=== PATIENT | female | born 1990 | race Caucasian/White ===

== ENCOUNTER 2017-02-16 10:47 | Outpatient (CLI) | payer MEDICAID | END 2017-02-16 10:48 | disposition home or self-care (01) | DX: R53.83 Other fatigue (principal) ==

== ENCOUNTER 2019-04-01 12:03 | Outpatient (CLI) | payer BC ==
--- NOTE | 2019-04-01 14:51 | Ultrasound Report ---
Reason: LUMP OR MASS IN BREAST Procedure Date: 04/01/2019 Accession Number: [id number] / [id number] Procedure: US - Breast Unilateral Limited CPT Code: FULL RESULT: EXAM: Breast Unilateral Limited DATE: 04/01/2019 12:52 PM CLINICAL HISTORY: LUMP OR MASS IN BREAST COMPARISON: None. TECHNIQUE: Targeted ultrasound was performed of the left breast in the area of clinical concern at 6-7 o'clock and 2 distance from the nipple. Color Doppler was employed as appropriate. FINDINGS: Normal breast tissue is identified. There is no abnormal collection or mass by ultrasound. IMPRESSION: Negative examination RECOMMENDATION: Correlation to clinical examination. Breast screening mammography starting at the age of 40. BIRADS CATEGORY 1: Negative RADIA
== END 2019-04-01 12:04 | disposition home or self-care (01) ==
LOC: DI 12:03
PROVIDERS: ATTEND Nurse Practitioner
DX: N63.24 Unspecified lump in the left breast, lower inner quadrant (principal)
CPT/HCPCS: 76642

== ENCOUNTER 2020-09-14 20:00 | Outpatient (CLI) | payer BC ==
--- NOTE | 2020-09-15 09:08 | Ultrasound Report ---
PROCEDURE: Pelvic Complete INDICATIONS: AMENORRHEA, PELVIC PAIN LEFT. TECHNIQUE: Real-time transabdominal scanning was performed of the pelvic organs, with image documentation. COMPARISON: None. FINDINGS: Uterus: Uterus measures 10.1 x 3.7 x 5.5 cm. Endometrium measures 4 mm in combined thickness. Uteri ne echotexture is within normal limits. Ovaries: Right ovary measures 9.5 x 5.7 x 6.2 cm. Right ovarian volume measures 176.8 mL. Large simp le right ovarian cyst is noted measuring 6.8 x 8.1 x 5.0 cm. Left ovary measures 2.8 x 1.9 x 2.5 cm. Left ovarian volume measures 6.9 mm. No suspicious ovarian or adnexal mass lesions. Other: No free pelvic fluid. Limited scanning through the kidneys shows no hydronephrosis. IMPRESSION: 1. No acute sonographic abnormalities identified in the pelvis. 2. 6.8 cm simple right ovarian cyst. Recommend follow-up pelvic ultrasound in one year. Reviewed by: Ricardo Villareal MD on 09/15/2020 9:06 AM PDT Approved by: Ricardo Villareal MD on 09/15/2020 9:06 AM PDT Station ID: [id number]
== END 2020-09-14 20:01 | disposition home or self-care (01) ==
LOC: DI 20:00
PROVIDERS: ATTEND Obstetrics & Gynecology
DX: N91.2 Amenorrhea, unspecified (principal); R10.2 Pelvic and perineal pain; N83.291 Other ovarian cyst, right side
CPT/HCPCS: 76856

== ENCOUNTER 2020-10-15 09:22 | Outpatient (CLI) | payer BC ==
[2020-10-16 13:36] LABS: HIV AG/AB 4TH GEN NON-REACTIVE (NON-REACTIVE)
== END 2020-10-15 09:23 | disposition home or self-care (01) ==
LOC: LAB.S 09:22
PROVIDERS: ATTEND Obstetrics & Gynecology
DX: Z11.3 Encounter for screening for infections with a predominantly sexual mode of transmission (principal)
CPT/HCPCS: 36415; 81599; 86592; 87350; 87389

== ENCOUNTER 2022-06-14 05:45 | Emergency (ER) | payer BC, MEDICAID, OTHER ==
--- NOTE | 2022-06-14 06:05 | ED Physician Documentation ---
History of Present Illness - Stated complaint Stated Complaint: FEMALE /BLEEDING - Chief complaint Chief Complaint: General - History obtained from History obtained from: Patient - Additonal information Additional information: Patient is a who estimates she is approximately 5 weeks presenting for evaluation of vaginal bleeding that started this morning. Her last menstrual cycle was May 06. She has had 2 positive home tests. When she woke up and went to urinate this morning, she noticed blood on the toilet paper when she wiped. It was mucousy bloody discharge. There were no clots. She denies abdominal cramping. She denies fever, chest pain, trouble breathing, abdominal pain, vomiting or diarrhea. She does report recently having sciatica pain on the right.She is taking a . She has not yet established OB care for this .Her prior 2 pregnancies were uncomplicated. Review of Systems Constitutional: denies: Fever Nose: denies: Congestion Cardiac: denies: Chest pain / pressure Respiratory: denies: Dyspnea GI: denies: Abdominal Pain : reports: Vaginal bleeding Musculoskeletal: denies: Back pain Neurologic: denies: Headache PD PAST MEDICAL HISTORY - Past Medical History Past Medical History: Yes GI: None, Other Psych: Depression - Past Surgical History Past Surgical History: No - Present Medications Home Medications: Ambulatory Orders Medication Instructions Recorded Confirmed Sertraline HCl 100 mg PO DAILY 03/20/16 03/20/16 Diphenoxylate/Atropine [Lomotil] 1 each PO QID PRN #15 tablet 03/21/16 ondansetron HCL [Zofran] 4 mg PO Q6H PRN #10 tablet 03/21/16 - Allergies Allergies/Adverse Reactions: Allergies Allergy/AdvReac Type Severity Reaction Status Date / Time No Known Drug Allergies Allergy Verified 06/14/22 05:53 - Social History Does the pt smoke?: No Smoking Status: Never smoker Does the pt drink ETOH?: No Does the pt have substance abuse?: No - Immunizations Immunizations are current?: Yes PD ED PE NORMAL - General General: Alert and oriented X 3, No acute distress, Well developed/nourished - HEENT HEENT: Atraumatic, Moist mucous membranes - Neck Neck: Supple, no meningeal sign - Cardiac Cardiac: RRR, No murmur, Strong equal pulses - Respiratory Respiratory: No respiratory distress, Clear bilaterally - Abdomen Abdomen: Normal bowel sounds, Soft, Non tender, Non distended - Female Female : 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 (varun Covarrubias), Other (normal external exam; cervical os is closed, small amount of blood; no CMT or adnexal tenderness) - Back Back: No CVA TTP - Derm Derm: Warm and dry - Extremities Extremities: No edema, No calf tenderness / cord - Neuro Neuro: Normal speech - Psych Psych: Normal mood Results - Vitals Vitals: Vital Signs - 24 hr 06/14/22 05:53 Temperature 36.6 C Heart Rate 89 Respiratory 15 Rate Blood Pressure 135/89 H O2 Saturation 100 Oxygen O2 Source Room air - Labs Labs: Laboratory Tests 06/14/22 06/14/22 06/14/22 05:57 06:12 06:12 WBC 6.8 RBC 4.68 Hgb 13.3 Hct 40.0 MCV 85.5 MCH 28.4 MCHC 33.3 RDW 12.9 Plt Count 324 MPV 9.4 Neut # (Auto) 4.7 Lymph # (Auto) 1.6 [place] # (Auto) 0.4 Eos # (Auto) 0.1 Baso # (Auto) 0.0 Absolute Nucleated RBC 0.00 Nucleated RBC % 0.0 Sodium Potassium Chloride Carbon Dioxide Anion Gap BUN Creatinine Estimated GFR (MDRD) Glucose Calcium Total Bilirubin AST ALT Alkaline Phosphatase Total Protein Albumin Globulin Albumin/Globulin Ratio Lipase Urine Color YELLOW Urine Clarity CLEAR Urine pH 6.0 Ur Specific Bent 1.020 Urine Protein NEGATIVE Urine Glucose (UA) NEGATIVE Urine Ketones NEGATIVE Urine Occult Blood LARGE H Urine Nitrite NEGATIVE Urine Bilirubin NEGATIVE Urine Urobilinogen 0.2 (NORMAL) Ur Leukocyte Esterase SMALL H Urine RBC 6-10 H Urine WBC 0-3 Ur Squamous Epith Cells MOD Squamous H Urine Bacteria Few Ur Microscopic Review INDICATED Urine Culture Comments NOT INDICATED Urine HCG, Qual POSITIVE Blood Type O POSITIVE 06/14/22 06:12 WBC RBC Hgb Hct MCV MCH MCHC RDW Plt Count MPV Neut # (Auto) Lymph # (Auto) [place] # (Auto) Eos # (Auto) Baso # (Auto) Absolute Nucleated RBC Nucleated RBC % Sodium 134 L Potassium 3.6 Chloride 102 Carbon Dioxide 25 Anion Gap 7.0 BUN 13 Creatinine 0.5 Estimated GFR (MDRD) 143 Glucose 106 H Calcium 9.0 Total Bilirubin 0.6 AST 20 ALT 30 Alkaline Phosphatase 50 Total Protein 7.9 Albumin 4.2 Globulin 3.7 Albumin/Globulin Ratio 1.1 Lipase 36 Urine Color Urine Clarity Urine pH Ur Specific Bent Urine Protein Urine Glucose (UA) Urine Ketones Urine Occult Blood Urine Nitrite Urine Bilirubin Urine Urobilinogen Ur Leukocyte Esterase Urine RBC Urine WBC Ur Squamous Epith Cells Urine Bacteria Ur Microscopic Review Urine Culture Comments Urine HCG, Qual Blood Type PD MEDICAL DECISION MAKING - ED course ED course: Patient is a 32-year-old G3, P2 who is approximately 5 weeks presenting for evaluation of vaginal bleeding starting this morning. Her vital signs are stable and abdominal exam is benign. Labs reviewed. Ultrasound is pending at time of shift change. Will sign out to Dr. Cordova to follow-up on results of ultrasound.
[2022-06-14 06:10] LABS: BILIRUBIN,URINE NEGATIVE (NEGATIVE); GLUCOSE, URINE (UA) NEGATIVE (NEGATIVE); KETONES,URINE (UA) NEGATIVE (NEGATIVE); LEUKOCYTE ESTERASE, URINE SMALL (NEGATIVE); NITRITE,URINE NEGATIVE (NEGATIVE); OCCULT BLOOD,URINE LARGE (NEGATIVE); PROTEIN,URINE NEGATIVE (NEGATIVE); UROBILINOGEN,URINE 0.2 (NORMAL) E.U./dL (NORMAL)
[2022-06-14 06:11] LABS: CLARITY,URINE CLEAR (CLEAR)
[2022-06-14 06:13] LABS: HCG UR QUAL POSITIVE
[2022-06-14 06:19] LABS: BACTERIA,URINE Few /HPF (None Seen); SQUAMOUS EPITHELIAL CELL,UR MOD Squamous (<= Few); WBC,URINE 0-3 /HPF (0-5)
[2022-06-14 06:19] LABS: BASOPHILS % (AUTO) 0.4 %; EOSINOPHILS # (AUTO) 0.1 10^3/uL (0.0-0.7); EOSINOPHILS % (AUTO) 1.9 %; HGB - HEMOGLOBIN 13.3 g/dL (12.0-16.0); LYMPHOCYTES # (AUTO) 1.6 10^3/uL (1.5-3.5); LYMPHOCYTES % (AUTO) 22.8 %; MEAN CORPUSCULAR HEMOGLOBIN 28.4 pg (27.0-31.0); MEAN CORPUSCULAR HGB CONC 33.3 g/dL (32.0-36.0); MEAN CORPUSCULAR VOLUME 85.5 fL (81.0-99.0); MEAN PLATELET VOLUME 9.4 fL (7.9-10.8); MONOCYTES # (AUTO) 0.4 10^3/uL (0.0-1.0); NEUTROPHILS # (AUTO) 4.7 10^3/uL (1.5-6.6); NEUTROPHILS % (AUTO) 68.6 %; PLT - PLATELET COUNT 324 10^3/uL (130-450); RED BLOOD COUNT 4.68 10^6/uL (4.20-5.40); RED CELL DISTRIBUTION WIDTH 12.9 % (12.0-15.0); WHITE BLOOD COUNT 6.8 x10^3/uL (4.8-10.8)
[2022-06-14 06:32] LABS: ALBUMIN 4.2 g/dL (3.2-5.5); ALBUMIN/GLOBULIN RATIO 1.1 (1.0-2.2); BILIRUBIN,TOTAL 0.6 mg/dL (0.2-1.0); CREATININE 0.5 mg/dL (0.4-1.0); POTASSIUM 3.6 mmol/L (3.5-5.0); TOTAL PROTEIN 7.9 g/dL (6.7-8.2)
--- NOTE | 2022-06-14 09:16 | Ultrasound Report ---
PROCEDURE: OB First Trimester w/TV INDICATIONS: 5wks , VAG BLEED OUTSIDE/PRIOR DATING DATA: Last menstrual period (LMP): 05/06/2022. LMP-based estimated date of delivery (MAGDALENO): 02/10/2023. First dating scan: 06/14/2022 TECHNIQUE: Real-time scanning was performed of the fetus and maternal pelvic organs, with image documentation. Endovaginal scanning was also performed to better visualize the fetus and maternal ovaries. COMPARISON: None. FINDINGS: Fluid in the fundal portion of the uterine cavity is consistent with a possible gestational sac measu ring 1 cm. No yolk sac or pole identified within this presumed gestational sac. Uterus otherwis e normal. Right ovarian cyst measuring 10.7 x 7.3 x 7.8 cm with some traversing septations but no obvious solid or nodular component. Presumed corpus luteum cyst in the left ovary measuring 2.2 cm. IMPRESSION: Small fluid collection in the fundal uterus is consistent with a possible gestational sac and based o n the size of this presumed gestational sac the gestational age is five weeks six days. No yolk sac o r pole identified. Findings are consistent with early early intrauterine . Continued f ollow-up including serial hCG measurement and possible repeat ultrasound recommended to document norm al intrauterine . Reviewed by: Renato Oreilly MD on 06/14/2022 9:15 AM PDT Approved by: Renato Oreilly MD on 06/14/2022 9:15 AM PDT Station ID: [id number]
--- NOTE | 2022-06-14 09:24 | ED Physician Documentation ---
Departure - Departure Disposition: 01 Home, Self Care Clinical Impression: Vaginal bleeding affecting early , Type O blood, Rh positive, Ovarian cyst Condition: Good Instructions: ED Miscarriage Poss, Cyst Ovarian About Comments: Findings on your ultrasound are consistent with early intrauterine , however we recommend that you follow-up within the week either in the emergency department or at your [facility] to ensure that your is progressing appropriately. Today there was a large ovarian cyst found on your ultrasound. You are not experiencing any symptoms at this time, however it is very important that you follow-up with your [facility] as soon as possible concerning the cyst as it can lead to increased risk of a condition called "torsion", which can lead to loss of your ovary. Return to the emergency department immediately if you experience right-sided pain.
--- NOTE | 2022-06-14 09:31 | ED Physician Documentation ---
ED Addendum - Addendum Addendum: 06/14/22 09:29 Ultrasound is significant for large right-sided ovarian cyst. Patient states that she has been told in the past that she has a cyst on that side, she has never had any intervention for it by SURGERY NURSE. At this time the patient denies having pain in her right lower quadrant. She states that she had pain 2 years ago, but none since. Patient was counseled on the importance of close SURGERY NURSE follow-up for the cyst as it could lead to increased risk of torsion. Patient states that she has an SURGERY NURSE clinic that she can follow-up with locally. Patient counseled to return immediately to the emergency department if she experiences pain on her right side. Early IUP seen, she was counseled to follow-up within the week for repeat ultrasound imaging to ensure progression of early intrauterine . Pelvic rest counseled until seen and cleared by SURGERY NURSE.
[2022-06-14 09:41] VITALS: BP 125/82
== END 2022-06-14 09:41 | disposition home or self-care (01) ==
LOC: ED 05:45
DX: O20.9 Hemorrhage in early pregnancy, unspecified (principal); O34.81 Maternal care for other abnormalities of pelvic organs, first trimester; N83.201 Unspecified ovarian cyst, right side; Z3A.01 Less than 8 weeks gestation of pregnancy
CPT/HCPCS: 36415; 80053; 81001; 81003; 81025; 83690; 84702; 85025; 86900; 86901; 87086; 99283; 99284

== ENCOUNTER 2022-08-01 15:36 | Outpatient (CLI) | payer MEDICAID ==
[2022-08-01 15:57] LABS: BASOPHILS % (AUTO) 0.4 %; EOSINOPHILS # (AUTO) 0.1 10^3/uL (0.0-0.7); EOSINOPHILS % (AUTO) 1.7 %; HCT - HEMATOCRIT 38.4 % (37.0-47.0); HGB - HEMOGLOBIN 12.6 g/dL (12.0-16.0); LYMPHOCYTES # (AUTO) 1.8 10^3/uL (1.5-3.5); LYMPHOCYTES % (AUTO) 21.8 %; MEAN CORPUSCULAR HEMOGLOBIN 28.1 pg (27.0-31.0); MEAN CORPUSCULAR HGB CONC 32.8 g/dL (32.0-36.0); MEAN CORPUSCULAR VOLUME 85.7 fL (81.0-99.0); MONOCYTES # (AUTO) 0.5 10^3/uL (0.0-1.0); MONOCYTES % (AUTO) 5.5 %; NEUTROPHILS # (AUTO) 5.8 10^3/uL (1.5-6.6); NEUTROPHILS % (AUTO) 70.4 %; PLT - PLATELET COUNT 324 10^3/uL (130-450); RED BLOOD COUNT 4.48 10^6/uL (4.20-5.40); RED CELL DISTRIBUTION WIDTH 12.9 % (12.0-15.0); WHITE BLOOD COUNT 8.2 x10^3/uL (4.8-10.8)
[2022-08-01 16:09] LABS: BILIRUBIN,URINE NEGATIVE (NEGATIVE); GLUCOSE, URINE (UA) NEGATIVE (NEGATIVE); KETONES,URINE (UA) NEGATIVE (NEGATIVE); LEUKOCYTE ESTERASE, URINE TRACE (NEGATIVE); NITRITE,URINE NEGATIVE (NEGATIVE); OCCULT BLOOD,URINE NEGATIVE (NEGATIVE); PROTEIN,URINE NEGATIVE (NEGATIVE); UROBILINOGEN,URINE 0.2 (NORMAL) E.U./dL (NORMAL)
[2022-08-01 17:26] LABS: BACTERIA,URINE Few /HPF (None Seen); CLARITY,URINE CLEAR (CLEAR); MUCUS,URINE Moderate Strands; RBC,URINE None Seen /HPF (0-5); SQUAMOUS EPITHELIAL CELL,UR MOD Squamous (<= Few)
[2022-08-02 06:07] LABS: HBsAG SCREEN Negative (Negative); HCV AB <0.1 s/co ratio (0.0-0.9)
[2022-08-02 07:08] LABS: HIV SCREEN 4TH GENERATION Non Reactive (Non Reactive)
[2022-08-03 04:08] LABS: RPR Non Reactive (Non Reactive)
[2022-08-03 08:10] LABS: VARICELLA-ZOSTER AB IGG <135 index (Immune >165)
== END 2022-08-01 15:37 | disposition home or self-care (01) ==
LOC: LAB 15:36
PROVIDERS: ATTEND Obstetrics & Gynecology
DX: Z36.89 Encounter for other specified antenatal screening (principal); Z32.01 Encounter for pregnancy test, result positive
CPT/HCPCS: 36415; 81001; 85025; 86592; 86762; 86787; 86803; 86850; 86900; 86901; 87086; 87340; 87389

== ENCOUNTER 2022-08-04 15:58 | Outpatient (CLI) | payer MEDICAID ==
[2022-08-04 16:19] LABS: BILIRUBIN,URINE NEGATIVE (NEGATIVE); GLUCOSE, URINE (UA) NEGATIVE (NEGATIVE); KETONES,URINE (UA) TRACE mg/dL (NEGATIVE); LEUKOCYTE ESTERASE, URINE NEGATIVE (NEGATIVE); NITRITE,URINE NEGATIVE (NEGATIVE); OCCULT BLOOD,URINE NEGATIVE (NEGATIVE); PROTEIN,URINE NEGATIVE (NEGATIVE); UROBILINOGEN,URINE 0.2 (NORMAL) E.U./dL (NORMAL)
[2022-08-04 16:30] LABS: CLARITY,URINE CLOUDY (CLEAR); RBC,URINE None Seen /HPF (0-5); WBC,URINE 0-3 /HPF (0-5)
[2022-08-04 16:31] LABS: BACTERIA,URINE Many /HPF (None Seen); MUCUS,URINE Few Strands; SQUAMOUS EPITHELIAL CELL,UR MANY Squamous (<= Few)
[2022-08-04 19:39] LABS: NEISSERIA GONORRHOEAE DNA NEGATIVE (NEGATIVE); TRICHOMONAS VAGINALIS DNA NEGATIVE (NEGATIVE)
[2022-08-04 19:56] LABS: CHLAMYDIA TRACHOMATIS DNA POSITIVE (NEGATIVE)
== END 2022-08-04 15:59 | disposition home or self-care (01) ==
LOC: LAB.WC 15:58
PROVIDERS: ATTEND Obstetrics & Gynecology
DX: Z34.90 Encounter for supervision of normal pregnancy, unspecified, unspecified trimester (principal)
CPT/HCPCS: 81001; 87086; 87491; 87591; 87661

== ENCOUNTER 2022-08-23 11:27 | Outpatient (CLI) | payer MEDICAID | END 2022-08-23 11:28 | disposition home or self-care (01) | LOC: LAB 11:27 | PROVIDERS: ATTEND Obstetrics & Gynecology | DX: Z34.00 Encounter for supervision of normal first pregnancy, unspecified trimester (principal) | CPT/HCPCS: 36415 ==

== ENCOUNTER 2022-09-26 07:04 | Outpatient (CLI) | payer MEDICAID ==
--- NOTE | 2022-09-26 09:51 | Ultrasound Report ---
PROCEDURE: OB Detailed Eval INDICATIONS: SUPERVISION OF OUTSIDE/PRIOR DATING DATA: Last menstrual period (LMP): 05/06/2022. LMP-based estimated date of delivery (MAGDALENO): 02/10/2023. First dating scan (date and location): 06/14/2022. Estimated date of delivery (MAGDALENO) from first dating scan: 02/13/2023. TECHNIQUE: Real-time scanning was performed of the fetus, with image documentation and biometric measurements. Endovaginal scanning: Not performed today COMPARISON: June 28, 2022 FINDINGS: General: A single living intrauterine gestation is present. Presentation: Cephalic Placenta: Placental position is posterior, without previa. Amniotic fluid index: 14 cm, normal for gestational age. heart rate: 145 beats per minute. Maternal cervical canal: 6.7 cm long; normal length is 2.5 cm or more. biometrics: Biparietal diameter: 4.7 cm Head circumference: 17 cm Abdominal circumference: 15.2 cm Femur length: 3.3 cm Estimated gestational age from initial scan: 20 weeks Composite gestational age from present scan: 20 weeks and 1 day Estimated weight and percentile: 342.6 g, 61st percentile Measurement variability in biometric dating: +/- 10 days from 12-20 weeks gestation, +/- 2 weeks from 20-30 weeks gestation, +/- 3 weeks at 30 weeks gestation or later. Anatomic survey: Neuro: Ventricles are normal at less than 10 mm. Cisterna magna is normal at 3-11 mm. Cerebellum is normal in size and morphology. Nuchal skin fold: Normal at less than 6 mm between 14 and 20 weeks gestational age. Face: Nose and lips, facial profile are normal. Spine: No evidence for spina bifida. Heart: 4-chambered heart is present, with normal ventricular outflow tracts. Diaphragm: Diaphragm is intact. Stomach: Left-sided stomach is present. Kidneys: No hydronephrosis. Normal is less than 5 mm in 2nd trimester, less than 7 mm in 3rd trimester. Cord: 3 vessel cord has orthotopic insertion. Bladder: Normal in size. Extremities: All 4 extremities are visualized. There is a right ovarian cyst measuring 9.1 x 7.4 x 7.3 cm. IMPRESSION: Living intrauterine gestation at 20 weeks by initial ultrasound. Biometry today is concordant at the 61st percentile. Normal and complete routine anatomic survey. A simple right ovarian cyst again seen measuring up to 9.1 cm. Attention on follow-up imaging. Reviewed by: Jamison Mckinney MD on 09/26/2022 9:49 AM PDT Approved by: Jamison Mckinney MD on 09/26/2022 9:49 AM PDT Station ID: [id number]
== END 2022-09-26 07:05 | disposition home or self-care (01) ==
LOC: DI 07:04
PROVIDERS: ATTEND Obstetrics & Gynecology
DX: Z36.89 Encounter for other specified antenatal screening (principal)

== ENCOUNTER 2022-10-27 13:15 | Outpatient (CLI) | payer MEDICAID ==
[2022-10-28 23:57] LABS: CHLAMYDIA TRACHOMATIS DNA NEGATIVE (NEGATIVE); NEISSERIA GONORRHOEAE DNA NEGATIVE (NEGATIVE); TRICHOMONAS VAGINALIS DNA NEGATIVE (NEGATIVE)
== END 2022-10-27 23:59 | disposition home or self-care (01) ==
LOC: LAB.WC 13:15
PROVIDERS: ATTEND Obstetrics & Gynecology
DX: A74.9 Chlamydial infection, unspecified (principal)
CPT/HCPCS: 87491; 87591; 87661

== ENCOUNTER 2022-11-21 13:11 | Outpatient (CLI) | payer MEDICAID ==
[2022-11-21 14:16] LABS: HCT - HEMATOCRIT 35.9 % (37.0-47.0); HGB - HEMOGLOBIN 11.3 g/dL (12.0-16.0); MEAN CORPUSCULAR HEMOGLOBIN 26.8 pg (27.0-31.0); MEAN CORPUSCULAR HGB CONC 31.5 g/dL (32.0-36.0); MEAN CORPUSCULAR VOLUME 85.1 fL (81.0-99.0); MEAN PLATELET VOLUME 9.9 fL (7.9-10.8); RED BLOOD COUNT 4.22 10^6/uL (4.20-5.40); RED CELL DISTRIBUTION WIDTH 13.2 % (12.0-15.0); WHITE BLOOD COUNT 8.3 x10^3/uL (4.8-10.8)
== END 2022-11-21 13:12 | disposition home or self-care (01) ==
LOC: LAB 13:11
PROVIDERS: ATTEND Obstetrics & Gynecology
DX: Z34.90 Encounter for supervision of normal pregnancy, unspecified, unspecified trimester (principal)
CPT/HCPCS: 36415; 82950; 85027

== ENCOUNTER 2023-01-04 17:37 | Observation (INO) | payer MEDICAID ==
[2023-01-04 18:03] LABS: BILIRUBIN,URINE NEGATIVE (NEGATIVE); GLUCOSE, URINE (UA) NEGATIVE (NEGATIVE); KETONES,URINE (UA) NEGATIVE (NEGATIVE); LEUKOCYTE ESTERASE, URINE NEGATIVE (NEGATIVE); NITRITE,URINE NEGATIVE (NEGATIVE); OCCULT BLOOD,URINE NEGATIVE (NEGATIVE); PH,URINE 6.5 PH (5.0-7.5); PROTEIN,URINE NEGATIVE (NEGATIVE); UROBILINOGEN,URINE 0.2 (NORMAL) E.U./dL (NORMAL)
[2023-01-04 18:04] LABS: CLARITY,URINE CLEAR (CLEAR)
[2023-01-04 18:21] LABS: BACTERIA,URINE Few /HPF (None Seen); RBC,URINE 0-5 /HPF (0-5); SQUAMOUS EPITHELIAL CELL,UR RARE Squamous (<= Few); WBC,URINE 0-3 /HPF (0-5)
--- NOTE | 2023-01-04 18:46 | PROVIDER PROGRESS NOTE ---
- HPI Chief Complaint: Labor Check Current : Current EDU 02/10/23 Gestation 34 Weeks and 5 Days 3 Para 2 Vital Signs Temperature 98.1 F 01/04/23 17:57 Heart Rate 80 01/04/23 17:57 Respiratory Rate 16 01/04/23 17:57 Blood Pressure 120/76 01/04/23 17:57 Temperature 98.1 F 01/04/23 17:57 Heart Rate 80 01/04/23 17:57 Respiratory Rate 16 01/04/23 17:57 Blood Pressure 120/76 01/04/23 17:57 O2 Saturation If not protocol: Oxygen Flow, liters/minute - Procedures OB Procedure Performed: NST Diagnosis/Indication for NST: labor NST Procedure: NST Procedure Start Date 01/04/23 Start Time 17:50 Vibroacoustic Stimulation Used No Patient States Movement Yes - Plan Plan: Patient is a 32-year-old -0-0-2 at 34 weeks 5 days gestation presenting to triage for cramping. For the last several days she has noticed some back pressure and cramping. She has not noticed her uterus getting tight. She does feel some heaviness in her vagina. She feels good movement. She did notice a glob of tissue, possibly her mucous plug.. She has good movement, no leaking, no vaginal bleeding. She denies headache, right upper quadrant pain, changes in vision. No dysuria. Physical Constitutional: alert, no acute distress, well hydrated, well developed, well nourished, appropriate dress. Cardiovascular: Regular rate and rhythm. Respiratory: no respiratory distress. Abdomen: nondistended, nontender, no guarding.No CVA tenderness. Psych: affect and mood appropriate, normal interaction, good eye contact. 135 bpm baseline, moderate variability, accelerations present, no decelerations. [place]: Irregular, sometimes every 8 minutes, then periods of quiescence. SVE: 01/21/-3 UA: Few bacteria, no nitrites, no leukocyte esterase. GC/CT Vaginosis panel: Assessment and plan 32-year-old -0-0-2 at 34 weeks 5 days gestation with cramping.
[2023-01-04] MEDS ORDERED: BETAMETHASONE 30 MG/5 ML VIAL IM ONE (20:51)
[2023-01-04] MEDS ORDERED: LACTATED RINGERS 1,000 ML IV ONE (21:09)
--- NOTE | 2023-01-04 21:09 | HISTORY & PHYSICAL EXAMINATION ---
Admit History - Visit Reason Visit Reason: Contractions - : 3 Parity: 1 Smoking Status: Never smoker - Mother's Labs Mother's Blood Type: positive: O Mother's RH: positive: Positive GBS: positive: Other (Pending) Rubella Status: positive: Immune - Other Maternal History Other Maternal History: Patient is a 32-year-old -0-0-2 at 34 weeks 5 days gestation presenting to triage for cramping. For the last several days she has noticed some back pressure and cramping. She has not noticed her uterus getting tight. She does feel some heaviness in her vagina. She feels good movement. She did notice a glob of tissue, possibly her mucous plug.. She has good movement, no leaking, no vaginal bleeding. She denies headache, right upper quadrant pain, changes in vision. No dysuria. All other symptoms reviewed and were negative except per HPI. Course LMP: 05/06/2022 MAGDALENO by LMP:02/10/2023 Initial U/S:06/14/2022 @7w1d USEDD 02/13/2023 c/w LMP MAGDALENO FINAL MAGDALENO:02/10/2023 Problems: Chlamydia cervicitis in : Treated 08/05/2022. Repeat Negative 10/27/22 Anxiety: Decided to hold off on hydroxyzine at this time. Patient know she has this available. Is managing her anxiety currently. History of LGA: 38 week 4207g. Pre- Weight:171 BMI: 30.40 O pos/Rubella immune VZV:non immune Genetic testing:NIPT low risk/ no sex FAS:Normal anatomy scan. 342 g, 61st percentile. Normal amniotic fluid. Ovar sharron cyst still present, slightly smaller than before. Glucola- ordered 10/27. she knows to wait Influenza: 09/01/22 TDAP: Given 11/22/22 COVID: unvaccinated GBS and GCCT- both at 36wks HSV: Denies in self or partner Breast pump Rx-12/09/2022 MOD: pp contraception:Previously used Nexplanon. Unsure at this point. Says it took a long time to get last time. pap:10/02/2020 Normal HPV neg Initial GC/CT:positive chlamydia/ treated/negative repeat 10/27/22 PMH Reactive airway disease: Has not used albuterol in years PSH Unremarkable OB History 1. 03/08/2011, 40 weeks, female, 2. 04/28/2015, 38 weeks, male, 4207 g, SH Denies tobacco, alcohol, drugs Family History Mother: Hypertension Aunt: Breast cancer Allergies Lamictal: Rash Medications vitamins Physical exam: General: Alert, oriented, no acute distress. Head: Normal cephalic atraumatic Eyes: PERRLA, extraocular motions intact. Respiratory: Normal rate of respiration. No accessory muscle use, normal respiratory effort. Cardiovascular: Regular rate and rhythm Abdomen: Gravid, nontender, nondistended. Firm with contractions. Extremities: Normal range of motion Neuro: Oriented x3. Normal movements Psych: Appropriate mood and affect. Normal judgment and insight FHT: 135 bpm baseline, moderate variability, accelerations present, no decelerations. Reactive [place]: Irregular, sometimes every 3-6 minutes then space occasionally. SVE: Studies: UA: Few bacteria, no nitrites, no leukocyte esterase. GC/CT Vaginosis panel: Plan 32-year-old -0-0-2 at 34 weeks 5 days gestation with contractions. 1. contractions -So far has had no cervical change, but remains 2 cm dilated. Will admit for observation for overnight for monitoring for worsening and more frequent contractions. Patient says she feels pain in her legs during contractions, but uterus gets moderately tight. -Plan for late corticosteroids with first dose today -Labs for vaginal infection pending -We will give fluid bolus. -Discussed low threshold for transfer if she has a significant change in her contractions or she has any cervical dilation. Meds/Allgy - Home Medications Home Medications: Ambulatory Orders Medication Instructions Recorded Confirmed Sertraline HCl 100 mg PO DAILY 03/20/16 03/20/16 Diphenoxylate/Atropine [Lomotil] 1 each PO QID PRN #15 tablet 03/21/16 ondansetron HCL [Zofran] 4 mg PO Q6H PRN #10 tablet 03/21/16 - Allergies Allergies/Adverse Reactions: Allergies Allergy/AdvReac Type Severity Reaction Status Date / Time No Known Drug Allergies Allergy Verified 06/14/22 05:53 Physical - Abdominal Exam Vital Signs: Temp Pulse Resp BP Pulse Ox O2 Flow Rate 98.1 F 80 16 120/76 01/04/23 17:57 01/04/23 17:57 01/04/23 17:57 01/04/23 17:57 Plan for Labor - Plan For Labor I expect patient to be DC'd or transferred within 96 hours.: Yes
[2023-01-04 21:27] LABS: BACTERIAL VAGINOSIS DNA NEGATIVE (NEGATIVE); CANDIDA GROUP DNA NEGATIVE (NEGATIVE); CANDIDA KRUSEI DNA NEGATIVE (NEGATIVE); TRICHOMONAS VAGINALIS DNA NEGATIVE (NEGATIVE)
[2023-01-04 21:28] LABS: CANDIDA GLABRATA DNA NEGATIVE (NEGATIVE)
[2023-01-04] MEDS ORDERED: LACTATED RINGERS 1,000 ML IV SCH (22:15)
[2023-01-04] MEDS ORDERED: LACTATED RINGERS 1,000 ML ONE (23:18)
[2023-01-04 23:38] LABS: CHLAMYDIA TRACHOMATIS DNA NEGATIVE (NEGATIVE); NEISSERIA GONORRHOEAE DNA NEGATIVE (NEGATIVE)
[2023-01-05 08:10] VITALS: BP 120/70
--- NOTE | 2023-01-05 09:01 | DISCHARGE SUMMARY ---
Discharge Summary Admit Date: 01/04/23 Discharge Date: 01/05/23 Discharging Provider: Lior Robles MD Code Status: Attempt Resuscitation Condition at Discharge: Good Discharge Disposition: 01 Home, Self Care - DIAGNOSES Admission Diagnoses: 34 weeks gestation contractions not leading to labor Discharge Diagnoses with Status of Each Condition: 34 weeks gestation Contractions not leading to labor - HPI History of Present Illness: Patient doing well this morning. Cramping has greatly decreased in frequency and intensity. Still occasional vaginal pressure, but nothing like yesterday. Good movement, no leaking of bleeding. Physical Constitutional: alert, no acute distress, well hydrated, well developed, well nourished, appropriate dress. Cardiovascular: Regular rate and rhythm. Respiratory: no respiratory distress. Abdomen: nondistended, nontender, no guarding. Psych: affect and mood appropriate, normal interaction, good eye contact. SVE: 01/16/-3 FHT: 130 bpm baseline, moderate variability, accelerations present, no decelerations. [place]: quiescent - HOSPITAL COURSE Hospital Course: Patient came in with contractions at 34 weeks. She was observed overnight and cervical change. No vaginal infections were noted. Received a fluid bolus. She received her first dose of betamethasone and will return tonight for her second. - ALLERGIES Allergies/Adverse Reactions: Allergies Allergy/AdvReac Type Severity Reaction Status Date / Time No Known Drug Allergies Allergy Verified 06/14/22 05:53 - MEDICATIONS Home Medications: Ambulatory Orders Medication Instructions Recorded Confirmed Sertraline HCl 100 mg PO DAILY 03/20/16 03/20/16 Diphenoxylate/Atropine [Lomotil] 1 each PO QID PRN #15 tablet 03/21/16 ondansetron HCL [Zofran] 4 mg PO Q6H PRN #10 tablet 03/21/16 - FOLLOW UP Follow Up: With Lior Robles for routine care - TIME SPENT Time Spent in Discharge (Minutes): 30
--- NOTE | 2023-01-11 14:37 | PROCEDURE REPORT ---
- HPI Diagnosis/Indication for NST: labor Current EDU 02/10/23 Gestation 34 Weeks and 6 Days 3 Para 2 Vital Signs Temperature 98.1 F 01/04/23 17:57 Heart Rate 80 01/04/23 17:57 Respiratory Rate 16 01/04/23 17:57 Blood Pressure 120/76 01/04/23 17:57 Temperature 97.9 F 01/05/23 08:09 Heart Rate 89 01/05/23 08:09 Respiratory Rate 16 01/05/23 08:09 Blood Pressure 120/70 01/05/23 08:09 O2 Saturation 97 01/05/23 08:09 If not protocol: Oxygen Flow, liters/minute - NST Procedure NST Procedure Start Date 01/04/23 Start Time 17:50 Stop Time 18:20 Vibroacoustic Stimulation Used No Patient States Movement Yes - Results and Plan Plan: Patient is a 32-year-old -0-0-2 at 34 weeks 5 days gestation here for contractions NST Performed 01/04/2023 NST Read 01/04/2023 FHT: 135 bpm baseline, moderate variability, accelerations present, no decelerations. Reactive NST [place]: Every 3 to 6 minutes Diagnosis 34 weeks gestation contractions
== END 2023-01-05 10:00 | disposition home or self-care (01) ==
LOC: WFO 17:37 → FBP 17:40 → WFO 21:09
PROVIDERS: ADMIT Obstetrics & Gynecology; ATTEND Obstetrics & Gynecology
DX: O47.03 False labor before 37 completed weeks of gestation, third trimester (principal); Z3A.34 34 weeks gestation of pregnancy; O99.820 Streptococcus B carrier state complicating pregnancy
CPT/HCPCS: 59025; 81001; 81514; 87491; 87591; 87797; 96360; 96372; 99215; G0378; J7120; 87661

== ENCOUNTER 2023-01-05 22:16 | Outpatient (CLI) | payer MEDICAID ==
[2023-01-05] MEDS ORDERED: BETAMETHASONE 30 MG/5 ML VIAL IM ONE (22:24)
--- NOTE | 2023-01-13 15:58 | PROVIDER PROGRESS NOTE ---
Assessment/Plan - Problem List (1) Threatened labor, antepartum Impression: 32yo at 34.6w presenting for second dose of betamethasone dose for threatened labor. Follow up as scheduled.
== END 2023-01-05 22:30 | disposition home or self-care (01) ==
LOC: WFO 22:16 → FBP 22:22 → WFO 22:30
PROVIDERS: ATTEND Obstetrics & Gynecology
DX: O47.1 False labor at or after 37 completed weeks of gestation (principal); Z3A.34 34 weeks gestation of pregnancy
CPT/HCPCS: 96372

== ENCOUNTER 2024-02-03 23:47 | Emergency (ER) | payer MEDICAID ==
[2024-02-04 00:28] VITALS: O2SAT 100
--- NOTE | 2024-02-04 00:48 | ED Physician Documentation ---
PD HPI HEENT - Stated complaint Stated Complaint: BURLESON/CONGESTION - Chief complaint Chief Complaint: Heent - History obtained from History obtained from: Patient - Additional information Additional information: HPI from patient. Patient c/o bifrontal BURLESON and sinus congestion, gradual onset yesterday and gradually worsening in intensity of pain/BURLESON. The headache has progressed in area involved and is now a global headache. No exacerbating nor ameliorating factors. Denies fever, cough, dyspnea. Has been taking tylenol without adequate relief. Review of Systems Constitutional: denies: Fever, Chills, Sweats Throat: denies: Sore throat Respiratory: denies: Dyspnea, Cough Neurologic: reports: Headache PD PAST MEDICAL HISTORY - Past Medical History Past Medical History: No GI: None Psych: Depression - Past Surgical History Past Surgical History: No - Present Medications Home Medications: Ambulatory Orders Medication Instructions Recorded Confirmed Amox/Clav 875/125 [Augmentin 1 tablet PO Q12H 7 Days #14 tablet 02/04/24 875/125 Tab] - Allergies Allergies/Adverse Reactions: Allergies Allergy/AdvReac Type Severity Reaction Status Date / Time No Known Drug Allergies Allergy Verified 02/04/24 00:22 - Social History Does the pt smoke?: No Smoking Status: Never smoker Does the pt drink ETOH?: No Does the pt have substance abuse?: No - Immunizations Immunizations are current?: Yes - POLST Patient has POLST: No PD ED PE NORMAL - Vitals Vital signs reviewed: Yes - General General: Alert and oriented X 3, No acute distress, Well developed/nourished - HEENT HEENT: Pharynx benign - Neck Neck: Supple, no meningeal sign - Respiratory Respiratory: No respiratory distress, Clear bilaterally Results - Vitals Vitals: Oxygen O2 Source Room air - Labs Labs: Laboratory Tests 02/04/24 00:50 Nasal Adenovirus (PCR) NOT DETECTED Nasal B. parapertussis DNA (PCR) NOT DETECTED Nasal Coronavir 229E PCR NOT DETECTED Nasal Coronavir HKU1 PCR NOT DETECTED Nasal Coronavir NL63 PCR NOT DETECTED Nasal Coronavir OC43 PCR NOT DETECTED Nasal Enterovir/Rhinovir PCR NOT DETECTED Nasal Influenza B PCR NOT DETECTED Nasal Influenza A PCR NOT DETECTED Nasal Parainfluen 1 PCR NOT DETECTED Nasal Parainfluen 2 PCR NOT DETECTED Nasal Parainfluen 3 PCR NOT DETECTED Nasal Parainfluen 4 PCR NOT DETECTED Nasal RSV (PCR) NOT DETECTED Nasal B.pertussis DNA PCR NOT DETECTED Nasal C.pneumoniae (PCR) NOT DETECTED Carmelo Human Metapneumo PCR NOT DETECTED Nasal M.pneumoniae (PCR) NOT DETECTED Nasal SARS-CoV-2 (PCR) NOT DETECTED PD Medical Decision Making - ED course Complexity details: considered differential, d/w patient ED course: HPI s/o sinusitis with sinus headache. Discussed options for analgesia and she is comfortable with non-narcotic analgesia; given 600mg PO ibuprofen. She is given 875mg PO augmentin and rx for same Departure - Departure Disposition: Home, Self Care Clinical Impression: Sinusitis Qualifiers: Sinusitis location: frontal Chronicity: acute Recurrence: non-recurrent Qualified Code(s): J01.10 - Acute frontal sinusitis, unspecified Condition: Good Instructions: ED Headache Sinus, ED Sinusitis Abx Tx Prescriptions: Amox/Clav 875/125 [Augmentin 875/125 Tab] 1 tablet PO Q12H 7 Days #14 tablet Comments: The nasal swab tested negative for a number of different viruses including COVID, influenza. Your description of symptoms is suggestive of sinusitis, which would account for the nasal congestion and headache. I have electronically submitted a prescription for a 1-week course of the antibiotic. It typically takes 2-3 days for the antibiotic to have a noticeable effect on bacterial infections. As we discussed, despite the results of the nasal swab, a viral cause of your sinusitis is still possible, in which case antibiotics will not help. Forms: PCP List Discharge Date/Time: 02/04/24 03:45
[2024-02-04] MEDS: IBUPROFEN 600 MG TABLET PO STA (01:44)
[2024-02-04 03:10] LABS: B. PARAPERTUSSIS- RESP PCR PAN NOT DETECTED; B. PERTUSSIS- RESP PCR PANEL NOT DETECTED; C. PNEUMONIAE- RESP PCR PANEL NOT DETECTED; CORONAVIRUS 229E-RESP PCR NOT DETECTED; CORONAVIRUS HKU1-RESP PCR NOT DETECTED; CORONAVIRUS NL63-RESP PCR NOT DETECTED; CORONAVIRUS OC43-RESP PCR NOT DETECTED; HUMAN METAPNEUMOVIRUS NOT DETECTED; INFLUENZA A- RESP PCR PANEL NOT DETECTED; INFLUENZA B - RESP PCR PANEL NOT DETECTED; M. PNEUMONIAE- RESP PCR PANEL NOT DETECTED; PARAINFLUENZA VIRUS 1 NOT DETECTED; PARAINFLUENZA VIRUS 2 NOT DETECTED; PARAINFLUENZA VIRUS 3 NOT DETECTED; PARAINFLUENZA VIRUS 4 NOT DETECTED; RHINOVIRUS/ENTEROVIRUS NOT DETECTED; RSV- RESP PCR PANEL NOT DETECTED; SARS-CoV-2 -RESP PCR PANEL NOT DETECTED
[2024-02-04] MEDS: AMOX/CLAV 875 MG/125 MG TABLET PO STA (03:36)
[2024-02-04 03:51] VITALS: BP 121/77
== END 2024-02-04 03:45 | disposition home or self-care (01) ==
LOC: ED 23:47
DX: J01.10 Acute frontal sinusitis, unspecified (principal)
CPT/HCPCS: 87633; 99283; A9270

== ENCOUNTER 2024-06-07 07:00 | Outpatient (CLI) | payer MEDICAID | END 2024-06-07 23:59 | disposition home or self-care (01) | LOC: LAB.S 07:00 | PROVIDERS: ATTEND Registered Nurse | DX: R10.11 Right upper quadrant pain (principal) | CPT/HCPCS: 87086 ==

== ENCOUNTER 2024-06-10 07:51 | Outpatient (CLI) | payer MEDICAID ==
[2024-06-10 14:27] LABS: BASOPHILS % (AUTO) 0.6 %; EOSINOPHILS # (AUTO) 0.2 10^3/uL (0.0-0.7); EOSINOPHILS % (AUTO) 3.2 %; HCT - HEMATOCRIT 40.7 % (37.0-47.0); HGB - HEMOGLOBIN 12.7 g/dL (12.0-16.0); LYMPHOCYTES % (AUTO) 28.7 %; MEAN CORPUSCULAR HEMOGLOBIN 27.4 pg (27.0-31.0); MEAN CORPUSCULAR HGB CONC 31.2 g/dL (32.0-36.0); MEAN CORPUSCULAR VOLUME 87.9 fL (81.0-99.0); MONOCYTES # (AUTO) 0.3 10^3/uL (0.0-1.0); MONOCYTES % (AUTO) 4.6 %; NEUTROPHILS # (AUTO) 4.3 10^3/uL (1.5-6.6); NEUTROPHILS % (AUTO) 62.8 %; PLT - PLATELET COUNT 335 10^3/uL (130-450); RED BLOOD COUNT 4.63 10^6/uL (4.20-5.40); RED CELL DISTRIBUTION WIDTH 13.2 % (12.0-15.0); WHITE BLOOD COUNT 6.9 x10^3/uL (4.8-10.8)
[2024-06-10 14:43] LABS: ALBUMIN 4.8 g/dL (3.2-5.5); ALBUMIN/GLOBULIN RATIO 1.5 (1.0-2.2); ALKALINE PHOSPHATASE 65 IU/L (42-121); ALT ALANINE AMINOTRANSFERASE 15 IU/L (10-60); AST ASPARTATE AMINOTRANSFERASE 16 IU/L (10-42); BILIRUBIN,TOTAL 0.6 mg/dL (0.2-1.0); BUN - BLOOD UREA NITROGEN 11 mg/dL (6-20); CALCIUM 9.4 mg/dL (8.5-10.3); CARBON DIOXIDE - CO2 26 mmol/L (21-32); CHLORIDE 104 mmol/L (101-111); CREATININE 0.6 mg/dL (0.6-1.3); CRP - C-REACTIVE PROTEIN < 0.5 mg/dL (<0.5); GFR - MDRD 114 (>89); GLUCOSE 102 mg/dL (74-104); LIPASE 15 U/L (11-82); SODIUM 136 mmol/L (135-145); TOTAL PROTEIN 7.9 g/dL (6.4-8.9)
== END 2024-06-10 07:52 | disposition home or self-care (01) ==
LOC: LAB.S 07:51
PROVIDERS: ATTEND Registered Nurse
DX: R10.11 Right upper quadrant pain (principal)
CPT/HCPCS: 36415; 80053; 83690; 85025; 85651; 86140

== ENCOUNTER 2025-10-08 07:56 | Inpatient (IN) ==
[2025-10-08] MEDS ORDERED: hydrALAZINE INJ 20 MG/ML VIAL IVP PRN ×2 (08:22)
[2025-10-08] MEDS ORDERED: LACTATED RINGERS 1,000 ML IV PRN (08:22)
[2025-10-08] MEDS ORDERED: LABETALOL 20 MG/4 ML SYRINGE IVP PRN ×3 (08:22)
[2025-10-08] MEDS ORDERED: SODIUM CHLORIDE FLUSH 0.9% 10 ML SYRINGE IVP PRN (08:22)
[2025-10-08] MEDS ORDERED: OXYTOCIN 10 UNIT/ML VIAL IM PRN (08:22)
[2025-10-08] MEDS ORDERED: CARBOPROST TROMETHAMINE 250 MCG/ML VIAL IM PRN (08:22)
[2025-10-08] MEDS ORDERED: TERBUTALINE 1 MG/ML VIAL SUBQ PRN (08:22)
[2025-10-08] MEDS ORDERED: fentaNYL 100 MCG/2 ML VIAL IVP PRN (08:22)
[2025-10-08] MEDS ORDERED: OXYTOCIN/SODIUM CHLORIDE 500 ML IV PRN ×3 (08:22→18:57)
--- NOTE | 2025-10-08 08:34 | HISTORY & PHYSICAL EXAMINATION ---
Admit History Visit Reason Visit Reason: Other (Scheduled induction of labor) : 4 Parity: 3 Premature: 1 Care: positive [facility] Risk/History: positive labor <37 weeks Complications This : positive Gestational diabetes (A2) Smoking Status: Never smoker Mother's Labs Mother's Blood Type: positive B Mother's RH: positive Positive GBS: positive Group B Step Negative Rubella Status: positive Immune Other Maternal History Other Maternal History: Patient is a 35 yo at 39+2 wks here for scheduled induction of labor for GDMA2. She has been taking Lantus 16 U at night but forgot her dose last night. Review of glucose log for the past week notes 2 elevated fasting sugars in the 100s and PP dinner glucose in 140-150s at times. She had US at [facility] on 10/03. Report reviewed from patient's chart on her phone: Cephalic, EFW 4102 gm, BRITTNEY 15.1 cm, placenta lakes seen with no concern for accreta reported. She was checked in clinic on 10/06 and was 4-5 cm dilated. She has had occ ctx since then as well as some pelvic pressure. Denies leakage of fluid or vaginal bleeding. + movements. Specific Issues/Plans LMP: 12/29/2024 MAGDALENO by LMP: 10/05/25 US:03/13/2025@ 9+3 NOT c/w LMP Final MAGDALENO: 10/13/2025 by US Anxiety: Thinks mostly situational. Not on any medications currently. FAS: Abnormal, posterior placenta with a preplacental, avascular, hypoechoic mass, likely healing abruption, and intraplacental sonolucencies raising possibility of placenta accreta spectrum. -Per [facility] notes: Ultrasound does not show accreta but cannot be excluded. Multiple placental lakes seen. Given extensiveness of lakes, will get serial ultrasounds and these will be at . [X] [facility] ultrasound 10/03 - cephalic, 4102 gm, BRITTNEY 15.1 cm, placental lakes seen History of delivery at 35 weeks. 2 prior term deliveries A2 Gestational diabetes: Diagnosed at 31 weeks. - Glucose monitoring supplies sent. -Glargine QPM started at 33 weeks. - NSTs and EFW ordered. -Currently 16 units Pre- Weight: 192 BMI: 35.1 Blood type: O+ Antibody: negative CBC: H/H: plt 13.1/39.2 349 RUB: equivocal VZV: NOT immune HBsAg: negative HepC: NR RPR/AB-EIA: NR HIV: NR PAP: 03/25/2025 GC/CT: 03/25/2025 HSV: denies in self and partner Genetic testing: NIPT- negative, AFP- Negative Covid: declines Flu: 08/28/2025 FAS: Placenta: posterior without previa Cord: 3VC BRITTNEY: WNL EFW: 426g 70% 50gm OGCT: 176 3HR GTT: 97; 221; 139; 65 TDAP: 07/18 Breast Pump:07/18 RSV: Declined 3rd trimester: 10.7/33.2 262 RPR: NR RSV 09/11/2025 declines GBS: negative Delivery plan: MOD: Contraception: undecided; may consider post-delivery Nexplanon or IUD HPI Diagnosis/Indication for NST: Other (Induction of labor) Results and Plan Findings/Impression: FHT baseline 130 bpm Moderate variability Accels present No decels Ctx Q 2-4 min, irreg and not really felt by patient Meds/Allgy Home Medications Ambulatory Orders Medication Instructions Recorded Confirmed vits no.126-ferrous fum 1 tab PO DAILY 10/08/25 28 mg iron-folic acid 800 mcg tablet (Classic ) blood sugar diagnostic (Blood #120 ea 08/14/25 5 Glucose Test strips) blood-glucose meter (Blood Glucose #1 ea 08/14/2509/27 Monitoring kit) lancets 33 gauge #120 ea 08/14/25 10/06/25 glucagon 1 mg solution for 1 mg subcut Q20M PRN hypogl ycemia 08/28/25 10/08/25 injection (Glucagon Emergency Kit) #1 ea pen needle, diabetic 32 gauge x #100 ea 08/28/2510/06 5/16" (Comfort Touch Pen Needle) insulin glargine 100 unit/mL (3 16 unit subcut QPM 10/08/25 mL) subcutaneous pen (Lantus Solostar U-100 Insulin) Behzad-Plex 1 tab PO Q OTHER DAY 5 10/08/25 Allergies Allergies Allergy/AdvReac Type Severity Reaction Status Date / Time lamotrigine (From Lamictal) Allergy Intermediate Rash Verified 10/08/25 11:59 PFS Active Problems All Active Problems (Updated 10/08/25 @ 10:28 by Cindy Lucas MD) 39 weeks gestation of (Acute) Gestational diabetes mellitus, class A2 (Acute) Anemia affecting in third trimester (Acute) Abnormal ultrasound of placenta (Acute) Supervision of normal (Acute) Housing insecurity (Acute) Bipolar depression (Acute 07/25/16) Asthma (Acute 07/25/16) Anxiety (Acute 02/21/17) Medical History Medical History White classification A1 gestational diabetes mellitus (GDM) Glucose intolerance of Positive test Encounter for health-related screening Postoperative pain Unspecified ovarian cyst, right side (09/24/20) Postoperative examination Pelvic pain in female Hepatomegaly Cholelithiasis Headache, tension type, chronic At risk for caregiver role strain Dysmenorrhea Nevus of face Threatened labor, antepartum Abnormal uterine bleeding (AUB) Encounter for removal of subdermal contraceptive implant Vitamin D deficiency (07/25/16) Snoring (02/15/17) Lump or mass in breast (02/21/19) Insertion of implantable subdermal contraceptive (03/08/23) Chlamydia trachomatis infection (08/05/22) Amenorrhea (09/14/20) Abnormal cervix finding (10/02/20) Psychiatric care Surgical History Surgical History H/O ovarian cystectomy Family History Family History Mother Asthma High blood pressure Aunt Breast cancer Social History Social History Smoking Status: Never smoker Do you dip or chew tobacco?: No Do you vape?: No Do you feel safe in your home environment?: Yes History of physical, verbal, emotional, or financial abuse?: No ETOH Use: None Substance Use: denies use POLST Patient has POLST: No POLST CPR Status: Attempt Resuscitation (CPR) Level of Medical Intervention: Full Treatment Review of Systems Status of ROS: 10 or more systems reviewed and unremarkable except as noted in history and below Physical Abdominal Exam Vital Signs: Reviewed and nml; BP 113/61 Contraction Frequency (min/apart): Q 2-4 min, irreg Contraction Intensity: positive Mild Monitoring Heart Rate Baseline: 130s Strip Review: positive Category I Presentation Presentation: positive Vertex (by exam and US /) Vaginal Exam Membranes: positive Membranes intact Dilation (in cm): 5 Effacement (%): 50 Station: positive -3 Cervical Position: positive Posterior Speculum Exam Speculum Exam Performed: positive No Plan for Labor Plan For Labor I expect patient to be DC'd or transferred within 96 hours.: Yes Plan for Labor: plan reviewed and discussed. Plan for Pitocin augmentation then amniotomy. Conclusion/Plan Problem List (1) Gestational diabetes mellitus, class A2: Plan: at 39+2 wks with course notable for GDM A2, here for induction of labor. Cvx dilated but not feeling contractions yet. EFW on US 4102 gm with pelvis proven to similar weight with second baby, but did not have GDM with previous pregnancies. - Initiate induction with Pitocin. Once ctx more intense and regular for approx 2 hrs, plan for repeat exam and amniotomy if station low enough. - Discussed labor induction, vaginal delivery, expectations, and risks (bleeding, infection, injuries, and possible additional procedures for bleeding or shoulder dystocia). Questions addressed, and consent form reviewed and signed. Specifically had patient read and discussed items on the patient handout attached to this note. - plan reviewed. Pt desires to avoid epidural if possible (had poor experiences with and after other epidurals). Discussed alternatives for pain mgmt, including position changes/ambulation, shower/bath, nitrous oxide, and IV pain meds. Will also try to avoid episiotomy and operative delivery, but discussed possible indications for such. Partner Lior desires to catch the baby if possible. Discussed that we'll try to allow for such while also preparing for possible shoulder dystocia. - PPH risk: Low; type and screen on admission; currently single IV access - Shoulder dystocia risk: High; plan for 2 RNs and steps at bedside; closely monitor labor and pushing progress - GBS neg - Rubella/Varicella non-immune: offer MMR and Varicella vax - Diet: Low carb - Glucose monitoring: Q 2 hr glucose levels; consider sliding scale vs insulin drip if levels high - Reviewed BC plan, and may consider placement of IUD post-placenta or Nexplanon after delivery. Discussed pros/cons of these medications/procedures. Will readdress with patient prior to delivery. (2) Anemia affecting in third trimester: (3) 39 weeks gestation of : Plan Induction of Labor Consent (Medical Indication) You are being offered induction of labor for a medical indication. This means that medications or procedures will be used to start labor before it begins on its own, due to a clinical need identified by your care team. Benefits of medically indicated induction: - Addresses specific maternal or conditions that may increase risk if continues (such as hypertension, diabetes, growth restriction, or other complications). - May reduce the risk of stillbirth, maternal infection, or worsening of the underlying medical condition. - Increases the likelihood of timely delivery when continuing poses greater risk than induction.[1] Risks of induction: - Induction may result in longer time in labor and delivery compared to spontaneous labor. - There is a possibility that induction may not result in vaginal ; some patients may require section. - Risks vary depending on the method used, and not all patients are eligible for every method.[1] Procedures and medications used: - Pharmacologic cervical ripening: - <em>Misoprostol (oral or vaginal):</em> Used off-label for cervical ripening and induction. It is effective but carries a risk of uterine tachysystole (frequent contractions), which may affect heart rate and require intervention. Uterine rupture is a rare but serious risk, especially in those with prior uterine surgery, and misoprostol is contraindicated in these patients. Other risks include gastrointestinal symptoms and fever.[1][2][3] - <em>Dinoprostone (vaginal or intracervical):</em> FDA-approved for cervical ripening. Risks include uterine hyperstimulation, fever, and gastrointestinal symptoms. Contraindicated in patients with prior uterine surgery.[1][4] - Mechanical cervical ripening: - <em>Balloon catheters (Freeman or double-balloon):</em> Placed in the cervix to help it soften and open. Risks are generally low, with pain/discomfort being most common. There is a small increased risk of maternal infection compared to pharmacologic agents. Rare complications include bleeding, accidental rupture of membranes, and, very rarely, uterine perforation.[5][6] - <em>Synthetic osmotic dilators:</em> Placed in the cervix to absorb fluid and expand, helping to open the cervix. Risks include discomfort and cramping. These agents are associated with a lower risk of uterine hyperstimulation compared to prostaglandins.[7] - Oxytocin: - Administered via IV to stimulate uterine contractions. Oxytocin is effective in inducing labor and, when combined with amniotomy, can shorten labor duration. Risks include uterine tachysystole (excessive contractions), which can lead to abnormal heart rate patterns and, rarely, acidosis. Other risks include increased pain, need for epidural, and, rarely, hemorrhage. Careful monitoring is required.[8][9][10][11] - Amniotomy (artificial rupture of membranes): - Involves breaking the amniotic sac ("water") to help start or speed up labor, often performed in combination with oxytocin. Benefits include shortening the time to delivery and increasing the proportion of women who deliver within 24 hours, without increasing the risk of delivery or other major complications. Risks are low but include discomfort, rare risk of cord prolapse, infection, or bleeding.[8][12][13][14][15][16][17][18] Alternatives: - Expectant management: Waiting for labor to start naturally, with induction only if medically indicated later. Other information: - The choice of method depends on your clinical situation and cervical status. Not every candidate for induction is eligible for all methods. - All methods require monitoring for maternal and well-being during the process. - Please ask any questions or discuss concerns before signing. Consent for Vaginal Delivery Procedures I am being offered care for vaginal delivery, which may include internal monitoring, episiotomy, use of forceps or vacuum, and emergency section if needed. The following explains these procedures, their benefits, risksincluding specific risks for vacuum and forceps deliveryand alternatives.[1][2][3][4][5][6][7][8][9][10][11][12][13][14][15][16][17][18][19] [20][21][22][23] Vaginal Delivery: Vaginal is the most common way to deliver a baby. It usually has fewer risks and a faster recovery than . Risks include bleeding, infection, tears in the vagina or perineum, injury to the baby or mother, and rarely, the need for blood transfusion due to heavy bleeding ( hemorrhage). Severe tears (third- or fourth-degree) are more common with operative vaginal delivery.[1][2][3][8][9][10] Internal Monitoring: Special monitors may be placed inside the uterus or on the baby's scalp to check the baby's heart rate and contractions. Risks include infection, bleeding, and rarely, injury to the baby.[15][24][25] Episiotomy: An episiotomy is a small cut made in the perineum to help deliver the baby if needed. Risks include pain, bleeding, infection, longer healing time, and increased risk of blood loss.[8][26][27] Vacuum Delivery (Vacuum Extraction): Vacuum delivery uses a suction cup to help guide the baby out. - Risks to the mother: Increased risk of vaginal and perineal tears, hemorrhage, and need for blood transfusion. The risk of severe perineal trauma is lower than with forceps but higher than with spontaneous vaginal delivery.[16][18][19][20][21][22][23] - Risks to the baby: Higher risk of scalp injuries (such as cephalohematoma and caput succedaneum), scalp lacerations, and, rarely, subgaleal hemorrhage. injuries are more common than with spontaneous vaginal delivery but less frequent than with forceps for some types of trauma.[17][19][20][22][23] Forceps Delivery: Forceps delivery uses metal instruments to help guide the baby out. - Risks to the mother: Higher risk of severe perineal tears (third- and fourth- degree), vaginal and cervical lacerations, hemorrhage, and need for blood transfusion. Maternal trauma is more frequent than with vacuum delivery.[16][18][19][20][21][22] - Risks to the baby: Increased risk of facial injuries, scalp lacerations, and, rarely, nerve injury (such as facial nerve palsy) and skull fracture. trauma rates are similar to vacuum for some injuries but higher for others, such as facial injuries.[17][19][20][22] Emergency Section: A section () is surgery to deliver the baby through an incision in the abdomen. It may be needed if there are concerns for the baby's or mother's health during labor. Risks include infection, bleeding, blood clots, injury to organs, longer recovery, and a higher risk of needing a blood transfusion compared to vaginal delivery.[1][2][5][6][7][10][11][12] Blood Transfusion: A blood transfusion may be needed if there is significant blood loss during or after delivery. The risk is higher with operative vaginal delivery and section than with spontaneous vaginal delivery. Risks of transfusion include allergic reactions, fever, infection, and very rarey, serious complications.[1][2][3][5][6][7][8][10][11][12] Possible Additional Procedures for Heavy Bleeding - If heavy bleeding occurs, additional interventions may be needed, including medications (uterotonics, tranexamic acid), exam under anesthesia in the operating room, uterine curettage (if suspected retained tissue or placenta), intrauterine balloon or vacuum tamponade, and/or abdominal incision (laparotomy) to perform uterine compression sutures (B-Domínguez), vessel ligation ([place] suture), or hysterectomy.[12][13][14][15][16][17][18] Alternatives: Alternatives depend on the situation. For most low-risk pregnancies, vaginal delivery is preferred. If complications arise, the care team will discuss options, including waiting, changing positions, or other interventions.[14][28] Your Rights: - You have the right to ask questions and discuss your preferences. - You may accept or refuse any procedure. - Your care team will support you in making informed decisions. Lab Results Lab results reviewed: Yes 10/08/25 08:46 Other Lab Results: Bedside glucose 102
[2025-10-08] MEDS ORDERED: SODIUM CHLORIDE FLUSH 0.9% 10 ML SYRINGE IVP SCH (09:00)
[2025-10-08 09:20] LABS: HCT - HEMATOCRIT 37.2 % (37.0-47.0); HGB - HEMOGLOBIN 11.7 g/dL (12.0-16.0); MEAN PLATELET VOLUME 11.2 fL (7.9-10.8); NRBC ABSOLUTE COUNT (AUTO) 0.00 x10^3/uL; NUCLEATED RED BLOOD CELLS AUTO 0.0 /100WBC; PLT - PLATELET COUNT 255 10^3/uL (130-450); RED CELL DISTRIBUTION WIDTH 17.6 % (12.0-15.0)
[2025-10-08] MEDS: OXYTOCIN/SODIUM CHLORIDE 500 ML IV SCH (10:00)
[2025-10-08] MEDS: LACTATED RINGERS 1,000 ML IV SCH (10:00)
--- OUTSIDE RECORDS SUMMARY | 2025-10-08 10:12 | EXTERNAL MEDICAL SUMMARY RPT | Continuity of Care Document ---
Author Organization [facility] Address [address] [place] [id number] Phone Problems date description facility 2025-07-18 12:14 Encounter for immunization [facility] 2025-07-21 11:17 Encounter for [facility] 2025-07-21 11:17 Encounter for superv ision of normal , unspecified, third trimester [facility] 2025-07-27 00:01 Encounter for superv ision of normal , unspecified, unspecified trimester [facility] 2025-08-12 08:46 Abnormal glucose complicating p regnancy [facility] 2025-08-14 07:40 Abnormal glucose complicating p regnancy [facility] 2025-08-14 11:21 Abnormal glucose complicating p regnancy [facility] 2025-08-14 11:38 Gestational diabetes mellitus in , diet controlled [facility] 2025-08-14 11:38 Gestational diabetes mellitus in , unspecified control [facility] 2025-08-14 11:38 Encounter for superv ision of other normal , unspecified trimester [facility] 2025-08-15 00:04 Abnormal glucose complicating p regnancy [facility] 2025-08-18 11:36 Gestational diabetes mellitus in , diet controlled [facility] 2025-08-18 11:36 Gestational diabetes mellitus in , unspecified control [facility] 2025-08-18 11:36 Abnormal glucose complicating p regnancy [facility] 2025-08-18 11:36 Encounter for superv ision of other normal , unspecified trimester [facility] 2025-08-29 00:02 Encounter for immunization [facility] 2025-09-01 10:22 Encounter for immunization [facility] 2025-09-03 11:29 Gestational diabetes mellitus in , diet controlled [facility] 2025-09-03 11:29 Encounter for immunization [facility] 2025-09-10 09:47 Anemia complicating , third [facility] 2025-09-16 10:27 Gestational diabetes mellitus in , diet controlled [facility] 2025-09-18 15:20 Encounter for screeni ng for Streptococcus B [facility] 2025-09-18 15:44 Encounter for screeni ng for Streptococcus B [facility] 2025-09-18 15:45 Encounter for screeni ng for Streptococcus B [facility] 2025-09-19 00:04 Encounter for screeni ng for Streptococcus B [facility] 2025-09-22 10:26 Gestational diabetes mellitus in , unspecified control [facility] 2025-09-22 13:36 Gestational diabetes mellitus in , unspecified control [facility] 2025-09-22 13:36 Encounter for screeni ng for Streptococcus B [facility] 2025-09-25 17:06 Gestational diabetes mellitus in , unspecified control [facility] 2025-10-01 10:05 Gestational diabetes mellitus in , unspecified control [facility] 2025-10-02 10:07 Gestational diabetes mellitus in , unspecified control [facility] 2025-10-02 12:09 Gestational diabetes mellitus in , unspecified control [facility] 2025-10-03 09:32 Gestational diabetes mellitus in , unspecified control [facility] 2025-10-03 16:30 Gestational diabetes mellitus in , unspecified control [facility] 2025-10-03 16:31 Gestational diabetes mellitus in , unspecified control [facility] 2025-10-07 09:39 Gestational diabetes mellitus in , insulin controlled [facility] 2025-10-08 08:49 Gestational diabetes mellitus in , unspecified control [facility] Results/Labs test date facility value unit notes Result panel 1 MEAN PLATELET VOLUME 2025-07-26 11:05 [facility] 10.0 fl (missing) HGB - HEMOGLOBIN 2025-07-26 11:05 [facility] 10.7 g/dl (missing) RED CELL DISTRIBUTION WIDTH 2025-07-26 11:05 [facility] 14.0 % (missing) GLUCOSE,1H PP 50GM DOSE 2025-07-26 11:05 [facility] 176 mg/dl 50g Challenge 1 hr post Glucose < 140 mg/dL Reference: [place] [employer] As of May 2023 testing method has changed, this may include reference ranges. MEAN CORPUSCULAR HEMOGLOBIN 2025-07-26 11:05 [facility] 26.0 pg (missing) PLT - PLATELET COUNT 2025-07-26 11:05 [facility] 262 10 3/ul (missing) MEAN CORPUSCULAR HGB CONC 2025-07-26 11:05 [facility] 32.2 g/dl (missing) HCT - HEMATOCRIT 2025-07-26 11:05 [facility] 33.2 % (missing) RED BLOOD COUNT 2025-07-26 11:05 [facility] 4.11 10 6/ul (missing) WHITE BLOOD COUNT 2025-07-26 11:05 [facility] 7.1 x10 3/ul (missing) MEAN CORPUSCULAR VOLUME 2025-07-26 11:05 [facility] 80.8 fl (missing) RPR 2025-07-26 11:05 [facility] Non Reactive (missing ) Performed at: [address] [id number] Oceanographer Assistant: Eyad Ovalles MD, Phone: [phone] Result panel 2 GLUCOSE TOLERANCE 3HR 2025-08-14 07:48 [facility] (missing) (missing) GLU FAST 97 mg/dL Col Time:0750 GLU 1H 221 mg/dL Col Time:0857 GLU 2H 139 mg/dL Col Time:0953 GLU 3H 65 mg/dL Col Time:1052 DOSE 100 g Col Time:0750 Glucose Concentration Guidelines Fasting <95 mg/dL 1 hr post challenge <180 mg/dL 2 hr post challenge <155 mg/dL 3 hr post challenge <140 mg/dL Glucose concentration greater than or equal to these valuesat TWO or more time points is a positive test. Reference: [facility] Result panel 3 GBSPCR,REFLEX IF PEN ALLERGIC 2025-09-18 15:19 [facility] NEGATIVE (missing) (missing) Result panel 4 GLUCOSE, WHOLE BLOOD 2025-10-08 08:30 [facility] 102 (missing) Provider notified. Result panel 5 NUCLEATED RED BLOOD CELLS AUTO 2025-10-08 08:46 [facility] 0.0 /100wbc (missing) BASOPHILS # (AUTO) 2025-10-08 08:46 [facility] 0.0 10 3/ul (missing) NRBC ABSOLUTE COUNT (AUTO) 2025-10-08 08:46 [facility] 0 .00 x10 3/ul (missing) EOSINOPHILS # (AUTO) 2025-10-08 08:46 [facility] 0.1 10 3/ul (missing) MONOCYTES # (AUTO) 2025-10-08 08:46 [facility] 0.5 10 3/ul (missing) LYMPHOCYTES # (AUTO) 2025-10-08 08:46 [facility] 1.3 10 3/ul (missing) MEAN PLATELET VOLUME 2025-10-08 08:46 [facility] 11.2 fl (missing) HGB - HEMOGLOBIN 2025-10-08 08:46 [facility] 11.7 g /dl (missing) RED CELL DISTRIBUTION WIDTH 2025-10-08 08:46 [facility] 17.6 % (missing) MEAN CORPUSCULAR HEMOGLOBIN 2025-10-08 08:46 [facility] 25.7 pg (missing) PLT - PLATELET COUNT 2025-10-08 08:46 [facility] 255 10 3/ul (missing) MEAN CORPUSCULAR HGB CONC 2025-10-08 08:46 [facility] 31 .5 g/dl (missing) HCT - HEMATOCRIT 2025-10-08 08:46 [facility] 37.2 % (missing) RED BLOOD COUNT 2025-10-08 08:46 [facility] 4.56 10 6/ul (missing) NEUTROPHILS # (AUTO) 2025-10-08 08:46 [facility] 5.5 10 3/ul (missing) WHITE BLOOD COUNT 2025-10-08 08:46 [facility] 7.4 x10 3/ul (missing) MEAN CORPUSCULAR VOLUME 2025-10-08 08:46 [facility] 81.6 fl (missing) Social History date description facility"
[2025-10-08] MEDS ORDERED: FAMOTIDINE 20 MG/2 ML VIAL IVP PRN (10:58)
[2025-10-08] MEDS ORDERED: ONDANSETRON ODT 4 MG TABLET PO PRN (10:58)
[2025-10-08] MEDS ORDERED: CALCIUM CARBONATE CHEW 500 MG TABLET PO PRN (10:58)
[2025-10-08] MEDS ORDERED: ROPIVACAINE 0.2% 0 MG/0 ML BAG EP ONE (16:39)
[2025-10-08] MEDS ORDERED: fentaNYL 100 MCG/2 ML VIAL ONE ×2 (16:39→16:54)
[2025-10-08] MEDS: fentaNYL 100 MCG/2 ML VIAL IVP ONE (16:59)
[2025-10-08] MEDS: KETOROLAC 30 MG/ML VIAL IVP PRN (17:07)
[2025-10-08] MEDS: TRANEXAMIC ACID IN NACL 1,000 MG/100 ML BAG IV PRN (17:10)
[2025-10-08] MEDS: METHYLERGONOVINE 0.2 MG/ML VIAL IM PRN (17:25)
[2025-10-08] MEDS ORDERED: MEASLES,MUMPS & RUBELLA VACC 0.5 ML VIAL SUBQ ONE (17:52)
[2025-10-08] MEDS ORDERED: WITCH HAZEL/GLYCERIN 1 PAD TOP PRN (17:52)
[2025-10-08] MEDS ORDERED: oxyCODONE 5 MG TABLET PO PRN ×2 (17:52→18:57)
[2025-10-08] MEDS ORDERED: NALOXONE 0.4 MG/ML VIAL IVP PRN ×2 (17:52→18:57)
[2025-10-08] MEDS ORDERED: IBUPROFEN 600 MG TABLET PO PRN ×2 (17:52→18:57)
[2025-10-08] MEDS ORDERED: VARICELLA VACCINE LIVE/PF 1,350 UNIT/0.5 ML VIAL SUBQ ONE (17:52)
[2025-10-08] MEDS ORDERED: SIMETHICONE CHEW 80 MG TABLET PO PRN (17:52)
[2025-10-08] MEDS ORDERED: INSULIN REGULAR, HUMAN 300 UNIT/3 ML PEN SUBQ SCH (18:00)
--- NOTE | 2025-10-08 18:10 | PROVIDER PROGRESS NOTE ---
Labor Progress Note Labor Progress Note Labor Progress Note/Additional Text: Late entry from 1445 S/ Patient comfortable but feeling increased discomfort with contractions for past 45 min. She is also feeling more pressure. RN requested AROM and IUPC placement due to inability to monitor ctx while trying to dose Pitocin. Other RN's on the floor have also tried to assist but have not been successful. O/ AFEB, VS stable and nml FHT 130s, mod variability, accels present, no decels --> cat 1 [place] Ctx Q 2-4 min but not tracing well (Pitocin at 8 mU/min) Cvx 6/80/0 Amniotomy performed at 1428 --> clear fluid noted IUPC placed easily and without complications A/P at 39+2 wks here for IOL for GDM A2 - doing well with cat 1 FHT. Now in active labor s/p Pitocin. - AROM performed and IUPC placed. - Cont to titrate Pitocin to achieve adequate MVUs - Pt desiring to try to avoid epidural. Discussed likelihood that ctx will intensify and reviewed alternatives for pain mgmt. - Reassess in 2-3 hrs or sooner prn.
[2025-10-08] MEDS: NALBUPHINE 10 MG/ML AMP IVP ONE (18:25)
--- NOTE | 2025-10-08 18:28 | PROVIDER PROGRESS NOTE ---
Labor Progress Note Labor Progress Note Labor Progress Note/Additional Text: S/ Called to patient's bedside for increased pain/pressure with urge to push. RN checked patient about 5 min ago, and she was 8 cm. O/ AFEB, VS normal and stable FHT 130s with moderate variability, + accels, and early decels - cat 1-2 [place] Ctx Q 2 min with peaking from maternal pushing; Pitocin at 6 mU/min Cvx 7-8/90/+1 by my exam at 1617 A/P at 39+2 wks undergoing IOL for GDM A2. Patient very uncomfortable and requesting epidural. - Pitocin decreased by 1/2 - Anesthesia consulted for epidural placement - Prepare for delivery soon
--- NOTE | 2025-10-08 18:48 | DELIVERY NOTE ---
Delivery Note Labor Labor: positive Induced by oxytocin Infant Delivery Method Delivery Method: positive Spontaneous vaginal delivery Presentation Presentation: positive Vertex and FLORY - left occiput anterior Nuchal Cord Nuchal Cord: positive None Anesthetic Anesthetic: positive Lidocaine - 1% plain Volume: positive Other (10 ml) Amniotic Fluid Description Amniotic Fluid Description: positive Clear Laceration Laceration: positive 2nd degree Suture Suture Type: positive Vicryl Suture Size: positive 3-0 Delivery Outcome Delivery Date: 10/08/25 Delivery Time: 16:48 Delivery Outcome: positive Livebirth [place] : positive Placed in direct skin contact with mother, Suctioned, Stimulated and Warmed [place] sex: positive Male Cord Cord: positive 3 vessels Placenta Placenta: positive Intact and Expressed Estimated Blood Loss Estimated Blood Loss (in cc): 1,648 Post Delivery Events Post Delivery Events: positive Hemorrhage Delivery Comments (Free Text/Narrative) Delivery Comments (Free Text/Narrative): Patient was admitted for induction with cervical exam 5/50/-3. Pitocin was started then amniotomy performed at 1428 when IUPC was inserted. She progressed fairly quickly thereafter to 7-8 cm at 1617 and requested an epidural. However, prior to sitting up, she had a strong urge to push and was c/c/+2. She pushed with excellent efforts over 3 contractions, delivering the head to the perineum. No nuchal cord was noted. Shoulders followed easily with gentle traction. occurred at 1648. Per patient request in the moment (overwhelmed with discomfort), the baby was dried and stimulated at the perineum while allowing for 1+ min of delayed cord clamping. Cord was then clamped and cut by the father of the baby, and the infant was placed on the maternal abdomen. The placenta delivered with cord traction at 1705, and Pitocin was started at that time (to avoid contraction of the lower segment holding in placenta). Uterus was palpated while waiting for placenta and felt firm. After the placenta delivered, a large clot followed. Uterine tone was fair. Bladder was drained with red baker in/out cath (200 ml), and methergine 0.2 mg IM was given. The patient was having significant discomfort and was given Fentanyl 100 mcg then later Toradol 30 mg for low back pain and cramping pain. Repeat sweep of the lower uterus removed another 5 cm clot, and TXA was given. Local anesthetic was injected, and the 2' laceration was repaired with 3-0 vicryl in a subcuticular fashion only (the lac was external to the hymenal ring). QBL was felt to be 1500 ml at this point owing to the large gush after placenta delivery and some ongoing bleeding. A repeat sweep of the lower uterus noted improving tone but passage of another 3-4 cm clot. Misoprostol 600 mcg was administered sublingually. She also received a 500 ml bolus of LR> Bleeding slowed, and repeat exam noted no additional clot in the lower uterine segment and continued good uterine tone. Final QBL was 1648 ml. Pt VS stable and normal throughout. After delivery, she developed severe rigors and was given Nubain 5 mg IV. This seemed to help. Anticipate overall routine care at this point, but will check CBC, CMP, and coags at 2300 and CBC and coags again at 0600. No immediate indication for blood transfusion at this time, but will continue to monitor closely. Also prescribing methergine 0.2 mg PO Q 8 hrs x 3 doses.
[2025-10-08] MEDS ORDERED: DOCUSATE SODIUM 100 MG CAPSULE PO SCH (21:00)
[2025-10-08] MEDS: DOCUSATE SODIUM 100 MG CAPSULE PO SCH (21:35)
[2025-10-08] MEDS: ACETAMINOPHEN 500 MG TABLET PO PRN (21:36)
[2025-10-08] MEDS ORDERED: CYCLOBENZAPRINE 10 MG TABLET PO PRN (21:43)
--- NOTE | 2025-10-08 21:43 | PROVIDER PROGRESS NOTE ---
Subjective Prog Note Date Prog Note Date: 10/08/25 Prog Note Time: 21:33 Subjective Subjective: Patient is feeling left mid back pain, worst with trying to ambulate to the restroom. Pain improves when laying down and with stretching and massage. Denies uterine or lower abdominal pain. She also is having some mild discomfort and crackling sensation at the joint where her clavicle meets her sternum. She now has a fever to 39C as well and is having chills/sweats. Current Medications Current Medications Current Medications: Current Medications Generic Name Dose Route Start Last Admin Trade Name Freq PRN Reason Stop Dose Admin Acetaminophen 1,000 mg 10/08/25 08:22 Acetaminophen 500 Mg Tablet PO Q8H PRN Mild Pain or Fever>38C(100.4F) Calcium Carbonate/Glycine 1,000 mg 10/08/25 10:58 Calcium Carbonate Chew 500 Mg Tablet PO Q6HR PRN Heartburn Carboprost Tromethamine 250 mcg 10/08/25 08:22 Carboprost Tromethamine 250 Mcg/Ml Vial IM .ONCE PRN Hemorrhage Diphenhydramine HCl 25 mg 10/08/25 10:58 Diphenhydramine Inj 50 Mg/Ml Vial IVP Q6H PRN Allergy Symptoms Docusate Sodium 100 mg 10/08/25 21:00 Docusate Sodium 100 Mg Capsule PO BID TORI Famotidine 20 mg 10/08/25 10:58 Famotidine 20 Mg/2 Ml Vial IVP DAILY PRN HEARTBURN Hydralazine HCl 5 - 10 mg 10/08/25 08:22 Hydralazine Inj 20 Mg/Ml Vial IVP Q20M PRN SBP> or= 160 OR DBP> or= 110 Protocol Hydralazine HCl 10 mg 10/08/25 08:22 Hydralazine Inj 20 Mg/Ml Vial IVP .ONCE PRN SBP> or= 160 OR DBP> or= 110 Protocol Tranexamic Acid 1,000 mg in 100 mls @ 600 mls/hr 10/08/25 08:22 10/08/25 17:25 Tranexamic 1,000 Mg/100ml-Nacl IV Infused Q30M PRN Infusion EBL >1200mL and within 3hr Oxytocin/Sodium Chloride 500 mls @ 999 mls/hr 10/08/25 17:52 Pitocin/Sodium Chloride IV PRN PRN POST- HEMORR PREVENTION Protocol 999 MILLIUNIT/MIN Oxytocin/Sodium Chloride 500 mls @ 999 mls/hr 10/08/25 18:57 Pitocin/Sodium Chloride IV PRN PRN POST- HEMORR PREVENTION Protocol 999 MILLIUNIT/MIN Ibuprofen 600 mg 10/08/25 17:52 Ibuprofen 600 Mg Tablet PO Q6HR PRN Moderate Pain (Level 4-6) Labetalol HCl 20 - 80 mg 10/08/25 08:22 Labetalol 20 Mg/4 Ml Syringe IVP Q10M PRN SBP> or= 160 OR DBP> or= 110 Protocol Labetalol HCl 20 mg 10/08/25 08:22 Labetalol 20 Mg/4 Ml Syringe IVP .ONCE PRN SBP> or= 160 OR DBP> or= 110 Protocol Labetalol HCl 20 - 40 mg 10/08/25 08:22 Labetalol 20 Mg/4 Ml Syringe IVP Q10M PRN SBP> or= 160 OR DBP> or= 110 Protocol Methylergonovine Maleate 0.2 mg 10/09/25 00:00 Methylergonovine 0.2 Mg/Ml Vial PO TID TORI Naloxone HCl 0.4 mg 10/08/25 17:52 Naloxone 0.4 Mg/Ml Vial IVP .ONCE PRN Opioid Overdose Nifedipine 10 - 20 mg 10/08/25 08:22 Nifedipine 10 Mg Capsule PO Q20M PRN SBP> or= 160 OR DBP> or= 110 Protocol Ondansetron HCl 4 mg 10/08/25 10:58 Ondansetron Odt 4 Mg Tablet PO Q4HR PRN Nausea / Vomiting Oxycodone HCl 5 mg 10/08/25 17:52 Oxycodone 5 Mg Tablet PO Q4HR PRN Severe Pain 6-10 Oxytocin 10 unit 10/08/25 08:22 Oxytocin 10 Unit/Ml Vial IM .ONCE PRN Step One if no IV access. Simethicone 80 mg 10/08/25 17:52 Simethicone Chew 80 Mg Tablet PO TID PRN Gas Witch Eun/Glycerin 1 pad 10/08/25 17:52 Witch E[place]/Glycerin 1 Pad TOP PRN PRN ITCHING Objective Vital Signs/Intake & Output Reviewed Vital Signs: Yes Vital Signs: Vital Signs x48h Temp Pulse Resp BP Pulse Ox 10/08/25 21:00 39.0 C H 10/08/25 19:57 99 18 110/61 98 Intake & Output: Intake & Output 10/05/25 10/06/25 10/07/25 10/08/25 23:59 23:59 23:59 23:59 Intake Total 2100 / 2100 Output Total 400 / 400 Balance 1700 / 1700 Weight (kg) 87.997 kg Objective General Appearance: positive No acute distress and Alert Respiratory: positive No respiratory distress Cardiovascular: positive Regular rate & rhythm Abdomen: positive Non-tender Back: negative CVA tenderness (L) Skin: positive Color nml Neurologic/Psychiatric: positive Oriented x3 and Mood/affect nml Lab Results 10/08/25 08:46 Other Labs: Lab Results x24hrs 10/08/25 10/08/25 10/08/25 Range/Units 16:12 13:32 12:15 WBC (4.8-10.8) x10^3/uL RBC (4.20-5.40) 10^6/uL Hgb (12.0-16.0) g/dL Hct (37.0-47.0) % MCV (81.0-99.0) fL MCH (27.0-31.0) pg MCHC (32.0-36.0) g/dL RDW (12.0-15.0) % Plt Count (130-450) 10^3/uL MPV (7.9-10.8) fL Neut # (Auto) (1.5-6.6) 10^3/uL Lymph # (Auto) (1.5-3.5) 10^3/uL Person # (Auto) (0.0-1.0) 10^3/uL Eos # (Auto) (0.0-0.7) 10^3/uL Baso # (Auto) (0.0-0.1) 10^3/uL Absolute Nucleated RBC x10^3/uL Nucleated RBC % /100WBC POC Whole Bld Glucose 96 135 82 (70-100) mg/dL Blood Type Antibody Screen 10/08/25 10/08/25 10/08/25 Range/Units 10:31 08:46 08:30 WBC 7.4 (4.8-10.8) x10^3/uL RBC 4.56 (4.20-5.40) 10^6/uL Hgb 11.7 L (12.0-16.0) g/dL Hct 37.2 (37.0-47.0) % MCV 81.6 (81.0-99.0) fL MCH 25.7 L (27.0-31.0) pg MCHC 31.5 L (32.0-36.0) g/dL RDW 17.6 H (12.0-15.0) % Plt Count 255 (130-450) 10^3/uL MPV 11.2 H (7.9-10.8) fL Neut # (Auto) 5.5 (1.5-6.6) 10^3/uL Lymph # (Auto) 1.3 L (1.5-3.5) 10^3/uL Person # (Auto) 0.5 (0.0-1.0) 10^3/uL Eos # (Auto) 0.1 (0.0-0.7) 10^3/uL Baso # (Auto) 0.0 (0.0-0.1) 10^3/uL Absolute Nucleated RBC 0.00 x10^3/uL Nucleated RBC % 0.0 /100WBC POC Whole Bld Glucose 89 102 (70-100) mg/dL Blood Type O POSITIVE Antibody Screen NEGATIVE Assessment/Plan Problem List (1) care following vaginal delivery: Impression: S/p approx 5 hrs ago with delivery notable for pain control concerns entering second stage, PPH with QBL 1648 ml, and rigors. Prior to and following delivery, patient was tense and shaking for nearly 2 hrs. Suspect she is feeling tension and muscle spasm in her left back. Exam is not suggestive of pyelonephritis. She is also awaiting void since in/out cath at time of delivery. - Cont with massage, stretching, and warm compresses. - Ordering Flexeril for prn use. - Obtain bedside commode to enable void. Consider urethral catheterization as needed. (2) fever, current hospitalization: Impression: New fever to 39C with hx of SL misoprostol approx 4 hrs ago during PPH mgmt. Misoprostol is known to cause fevers, and patient is without other risk factors for infectious etiology (ROM only 2-3 hrs prior to vaginal delivery). - Will given Tylenol 1000 mg PO x 1 now and repeat temp in one hr. - If persistent elevation or recurrent fever, plan to obtain labs for sepsis and start antibiotics with coverage for endometritis. (3) hemorrhage, delivered, current hospitalization: (4) Gestational diabetes mellitus, class A2: (5) Anemia affecting in third trimester: (6) 39 weeks gestation of :
[2025-10-08 23:14] LABS: HCT - HEMATOCRIT 30.5 % (37.0-47.0); HGB - HEMOGLOBIN 9.7 g/dL (12.0-16.0); MEAN PLATELET VOLUME 11.2 fL (7.9-10.8); NRBC ABSOLUTE COUNT (AUTO) 0.00 x10^3/uL; NUCLEATED RED BLOOD CELLS AUTO 0.0 /100WBC; PLT - PLATELET COUNT 248 10^3/uL (130-450); RED CELL DISTRIBUTION WIDTH 17.4 % (12.0-15.0)
[2025-10-08 23:21] LABS: INR 1.1 (0.8-1.2); PT - PROTHROMBIN TIME 11.9 secs (9.9-12.6)
[2025-10-08 23:28] LABS: ALT ALANINE AMINOTRANSFERASE 19.0 IU/L (10-60); AST ASPARTATE AMINOTRANSFERASE 21.0 IU/L (10-42); BUN - BLOOD UREA NITROGEN 12.0 mg/dL (6-20); CARBON DIOXIDE - CO2 20.0 mmol/L (21-32); CREATININE 0.5 mg/dL (0.6-1.3); GFR - MDRD 140.0 (>89)
[2025-10-08] MEDS ORDERED: METHYLERGONOVINE 0.2 MG/ML VIAL PO SCH (23:59)
[2025-10-09] MEDS ORDERED: METHYLERGONOVINE 0.2 MG/ML VIAL PO SCH
[2025-10-09] MEDS ORDERED: METHYLERGONOVINE 0.2 MG/ML VIAL ONE ×2 (00:06→07:57)
[2025-10-09] MEDS: IBUPROFEN 800 MG TABLET PO PRN (00:11)
[2025-10-09] MEDS: METHYLERGONOVINE 0.2 MG/ML VIAL IM SCH (00:12)
[2025-10-09 06:04] LABS: HCT - HEMATOCRIT 31.9 % (37.0-47.0); HGB - HEMOGLOBIN 10.1 g/dL (12.0-16.0); MEAN PLATELET VOLUME 10.9 fL (7.9-10.8); NRBC ABSOLUTE COUNT (AUTO) 0.00 x10^3/uL; NUCLEATED RED BLOOD CELLS AUTO 0.0 /100WBC; PLT - PLATELET COUNT 239 10^3/uL (130-450); RED CELL DISTRIBUTION WIDTH 17.6 % (12.0-15.0)
[2025-10-09 06:06] LABS: INR 1.0 (0.8-1.2); PT - PROTHROMBIN TIME 11.1 secs (9.9-12.6)
[2025-10-09 06:09] LABS: RPR Non Reactive (Non Reactive)
--- NOTE | 2025-10-09 20:32 | PROVIDER PROGRESS NOTE ---
Subjective Prog Note Date Prog Note Date: 10/09/25 Prog Note Time: 17:30 Subjective Pt reports feeling: Improved Subjective: Patient is PPD #1 s/p yesterday afternoon with delivery notable for hemorrhage and QBL 1648 gm. Bleeding was managed with Methergine, TXA, and sublingual miso. She then spike a temp to 39C approx 4 hrs after the miso dose. Fever was attributed to the miso, and antibiotics were not started at that time. She has had no subsequent temp elevations. She has had some left mid back pain since delivery, which improves with resting/laying down, heat, massage, stretching, and pain medications. Clemente catheter was placed last evening when she hadn't voided 4-5 hrs post-delivery. She had voided a very small amt just prior, and clemente was inserted to ensure no urinary retention. A small amt of additional urine was obtained, and the clemente was continued overnight to ensure adequate urine output after her PPH. She orally hydrated, and urinary output increased appropriately. Today, she reports continued left sided pain that has been managed as above. Clemente was removed this morning. She has been voiding and feels like she's completely emptying. Lochia has been decreasing. She has been ambulating and taking Tylenol and Motrin as needed. The baby is at the bedside and . Current Medications Current Medications Current Medications: Current Medications Generic Name Dose Route Start Last Admin Trade Name Freq PRN Reason Stop Dose Admin Acetaminophen 1,000 mg 10/08/25 08:22 10/09/25 13:48 Acetaminophen 500 Mg Tablet PO 1,000 mg Q8H PRN Administration Mild Pain or Fever>38C(100.4F) Calcium Carbonate/Glycine 1,000 mg 10/08/25 10:58 Calcium Carbonate Chew 500 Mg Tablet PO Q6HR PRN Heartburn Carboprost Tromethamine 250 mcg 10/08/25 08:22 Carboprost Tromethamine 250 Mcg/Ml Vial IM .ONCE PRN Hemorrhage Cyclobenzaprine HCl 10 mg 10/08/25 21:43 Cyclobenzaprine 10 Mg Tablet PO TID PRN Spasms Diphenhydramine HCl 25 mg 10/08/25 10:58 Diphenhydramine Inj 50 Mg/Ml Vial IVP Q6H PRN Allergy Symptoms Docusate Sodium 100 mg 10/08/25 21:00 10/09/25 08:54 Docusate Sodium 100 Mg Capsule PO 100 mg BID TORI Administration Famotidine 20 mg 10/08/25 10:58 Famotidine 20 Mg/2 Ml Vial IVP DAILY PRN HEARTBURN Hydralazine HCl 5 - 10 mg 10/08/25 08:22 Hydralazine Inj 20 Mg/Ml Vial IVP Q20M PRN SBP> or= 160 OR DBP> or= 110 Protocol Hydralazine HCl 10 mg 10/08/25 08:22 Hydralazine Inj 20 Mg/Ml Vial IVP .ONCE PRN SBP> or= 160 OR DBP> or= 110 Protocol Tranexamic Acid 1,000 mg in 100 mls @ 600 mls/hr 10/08/25 08:22 10/08/25 17:25 Tranexamic 1,000 Mg/100ml-Nacl IV Infused Q30M PRN Infusion EBL >1200mL and within 3hr Oxytocin/Sodium Chloride 500 mls @ 999 mls/hr 10/08/25 17:52 Pitocin/Sodium Chloride IV PRN PRN POST- HEMORR PREVENTION Protocol 999 MILLIUNIT/MIN Oxytocin/Sodium Chloride 500 mls @ 999 mls/hr 10/08/25 18:57 Pitocin/Sodium Chloride IV PRN PRN POST- HEMORR PREVENTION Protocol 999 MILLIUNIT/MIN Ibuprofen 800 mg 10/08/25 23:45 10/09/25 17:57 Ibuprofen 800 Mg Tablet PO 800 mg Q8HR PRN Administration Moderate Pain (Level 4-6) Labetalol HCl 20 - 80 mg 10/08/25 08:22 Labetalol 20 Mg/4 Ml Syringe IVP Q10M PRN SBP> or= 160 OR DBP> or= 110 Protocol Labetalol HCl 20 mg 10/08/25 08:22 Labetalol 20 Mg/4 Ml Syringe IVP .ONCE PRN SBP> or= 160 OR DBP> or= 110 Protocol Labetalol HCl 20 - 40 mg 10/08/25 08:22 Labetalol 20 Mg/4 Ml Syringe IVP Q10M PRN SBP> or= 160 OR DBP> or= 110 Protocol Methylergonovine Maleate 0.2 mg 10/09/25 23:00 10/09/25 08:18 Methylergonovine 0.2 Mg/Ml Vial IM 0.2 mg Q8H TORI Administration Naloxone HCl 0.4 mg 10/08/25 17:52 Naloxone 0.4 Mg/Ml Vial IVP .ONCE PRN Opioid Overdose Nifedipine 10 - 20 mg 10/08/25 08:22 Nifedipine 10 Mg Capsule PO Q20M PRN SBP> or= 160 OR DBP> or= 110 Protocol Ondansetron HCl 4 mg 10/08/25 10:58 Ondansetron Odt 4 Mg Tablet PO Q4HR PRN Nausea / Vomiting Oxycodone HCl 5 mg 10/08/25 17:52 Oxycodone 5 Mg Tablet PO Q4HR PRN Severe Pain 6-10 Oxytocin 10 unit 10/08/25 08:22 Oxytocin 10 Unit/Ml Vial IM .ONCE PRN Step One if no IV access. Simethicone 80 mg 10/08/25 17:52 Simethicone Chew 80 Mg Tablet PO TID PRN Gas Witch Eun/Glycerin 1 pad 10/08/25 17:52 Witch Eun/Glycerin 1 Pad TOP PRN PRN ITCHING Objective Vital Signs/Intake & Output Reviewed Vital Signs: Yes Vital Signs: Vital Signs x48h Temp Pulse Resp BP Pulse Ox 10/09/25 13:30 36.6 C 74 15 110/57 L 98 Intake & Output: Intake & Output 10/06/25 10/07/25 10/08/25 10/09/25 23:59 23:59 23:59 23:59 Intake Total 2600 / 2600 300 / 300 Output Total 440 / 440 3800 / 3800 Balance 2160 / 2160 -3500 / -3500 Weight (kg) 87.997 kg Objective General Appearance: positive No acute distress and Alert Respiratory: positive No respiratory distress and Breath sounds nml Cardiovascular: positive Regular rate & rhythm and No murmur Abdomen: positive Non-tender and Other (Uterus firm and nontender at U-2) Back: negative CVA tenderness (L) (Tenderness improves a bit with massage) Skin: positive Color nml Extremities: positive Full ROM and Nml appearance Neurologic/Psychiatric: positive Oriented x3 and Mood/affect nml Lab Results 10/09/25 05:53 10/08/25 23:06 Other Labs: Lab Results x24hrs 10/09/25 10/08/25 10/08/25 Range/Units 05:53 23:06 08:46 WBC 11.3 H 13.2 H (4.8-10.8) x10^3/uL RBC 3.90 L 3.70 L (4.20-5.40) 10^6/uL Hgb 10.1 L 9.7 L (12.0-16.0) g/dL Hct 31.9 L 30.5 L (37.0-47.0) % MCV 81.8 82.4 (81.0-99.0) fL MCH 25.9 L 26.2 L (27.0-31.0) pg MCHC 31.7 L 31.8 L (32.0-36.0) g/dL RDW 17.6 H 17.4 H (12.0-15.0) % Plt Count 239 248 (130-450) 10^3/uL MPV 10.9 H 11.2 H (7.9-10.8) fL Neut # (Auto) 8.0 H 10.6 H (1.5-6.6) 10^3/uL Lymph # (Auto) 2.2 1.7 (1.5-3.5) 10^3/uL Ada # (Auto) 0.9 0.8 (0.0-1.0) 10^3/uL Eos # (Auto) 0.1 0.0 (0.0-0.7) 10^3/uL Baso # (Auto) 0.0 0.0 (0.0-0.1) 10^3/uL Absolute Nucleated RBC 0.00 0.00 x10^3/uL Nucleated RBC % 0.0 0.0 /100WBC PT 11.1 11.9 (9.9-12.6) secs INR 1.0 1.1 (0.8-1.2) APTT 24.3 L 24.5 L (24.9-33.3) secs Fibrinogen 570 H 557 H (220-496) mg/dL Sodium 134 L (135-145) mmol/L Potassium 4.1 (3.5-4.5) mmol/L Chloride 107 (101-111) mmol/L Carbon Dioxide 20 L (21-32) mmol/L Anion Gap 7.0 (6-13) BUN 12 (6-20) mg/dL Creatinine 0.5 L (0.6-1.3) mg/dL Estimated GFR (MDRD) 140 (>89) Glucose 97 (74-104) mg/dL Calcium 8.4 L (8.5-10.3) mg/dL Total Bilirubin 0.4 (0.2-1.0) mg/dL AST 21 (10-42) IU/L ALT 19 (10-60) IU/L Alkaline Phosphatase 104 (42-121) IU/L Total Protein 5.6 L (6.4-8.9) g/dL Albumin 2.9 L (3.2-5.5) g/dL Globulin 2.7 (2.1-4.2) g/dL Albumin/Globulin Ratio 1.1 (1.0-2.2) RPR Non Reactive (Non Reactive) Assessment/Plan Problem List (1) care following vaginal delivery: Impression: PPD #1 s/p with resolved PPH and single fever that was felt to be a result of misoprostol administration. She has had no subsequent fevers. She cont to have L mid-back pain that is suspected to be musculoskeletal and related to patient's significant tension during labor and rigors. While pyelo or complicated UTI are in the differential for unilateral mid-back pain, the history and exam are more suggestive of musculoskeletal cause. - Discussed that patient may try Flexeril prn for pain to see if helpful. Cont Motrin and Tylenol prn as well. - Cont routine care and support. - Rubella equivocal and Varicella non-immune. Vax ordered x 2. - Consider discharge home tomorrow after being afeb 24 hrs (2) fever, current hospitalization: (3) hemorrhage, delivered, current hospitalization: Impression: CBC and coags were reassuring, and patient without si/sx of anemia. Cont to monitor bleeding. (4) Gestational diabetes mellitus, class A2: Impression: Insulin, low-carb diet, and glucose monitoring stopped after delivery. Plan for 2' GTT at 6 wks . (5) Anemia affecting in third trimester: (6) 39 weeks gestation of :
--- NOTE | 2025-10-10 09:42 | Discharge Summary ---
Discharge Summary Admit Date: 10/08/25 Discharge Date: 10/10/25 Discharging Provider: Trell Gonzalez MD [facility] History of Present Illness: Admission Diagnosis: - SIUP at 39w2d - A2DM on lantus. - Rubella equivocal - Varicella nonimmune Discharge Diagnosis: - Same, delivered - PPH - acute blood loss anemia. Procedures: , PPH of 1648cc Hospital Course: Patient was admitted at term for induction for A2DM with cervical exam 50/-3. Pitocin was started then amniotomy performed at 1428 when IUPC was inserted. She progressed fairly quickly thereafter to 7-8 cm at 1617 and requested an epidural. However, prior to sitting up, she had a strong urge to push and was c/c/+2. She had an with 2nd degree laceration and PPH of 1648cc due to atony. Hgb 11.7 -> 9.7-> 10.1. She had a fever to 102.2 several hours after delivery, but no other evidence of infection, attributed to uterotonics administered at time of delivery. She remained afebrile after the single elevated temp. Condition on Discharge: SUBJECTIVE: She feels that she is overall feeling well this morning. Pain is well controlled with current medications. Reports that back pain is somewhat better today, able to stretch and arch her back which was difficult before. The baby is doing well.. Baby is feeding via . She is ambulating well, tolerating normal diet, urinating without difficulty. Lochia is reported as normal. OBJECTIVE: Vital signs reviewed GENERAL: NAD CHEST: non labored respirations ABD: soft, non tender, fundus firm EXT: minimal lower extremity edema; No evidence of DVT LAB & IMAGING STUDIES: See below PLAN: Plan for discharge home with follow up in clinic in 1 week. Discussed recommendation for 2hr GTT to evaluate for DM outside of . Reviewed home care instructions and medications. Patient counseled regarding signs and symptoms of infection, excessive bleeding, vaginal rest and activity restrictions. Contraceptive plans to be formalized at visit. Discussed that additional support is available in our clinic if needed [ ]. ALLERGIES Allergies Allergy/AdvReac Type Severity Reaction Status Date / Time lamotrigine (From Lamictal) Allergy Intermediate Rash Verified 10/08/25 11:59 MEDICATIONS Ambulatory Orders Medication Instructions Recorded Confirmed vits no.126-ferrous fum 1 tab PO DAILY 10/08/25 28 mg iron-folic acid 800 mcg tablet (Classic ) PHYSICAL EXAM AT DISCHARGE Vital Signs: Vital Signs x48h Temp Pulse Resp BP Pulse Ox 10/10/25 10:30 98.2 F 81 15 119/62 99 LABS 10/09/25 05:53 10/08/25 23:06 FOLLOW UP [facility] TIME SPENT Time Spent in Discharge (Minutes): 20 Discharge Plan Discharge Patient Disposition: Home, Self Care Prescriptions: Continued Classic 28 mg iron- 800 mcg tablet 1 tab PO DAILY Discontinued Behzad-Plex 1 tab PO Q OTHER DAY Patient Comments: Pt. substituted it for Iron Sulfate 325mg because she couldn't get it at the pharmacy (DME) Blood Glucose Test Strip See Rx Instructions .MEDSUPPLY Qty: 120 3RF Rx Instructions: As directed to check blood sugar 4 times a day. (DME) blood-glucose meter [Blood Glucose Monitoring] Kit See Rx Instructions .MEDSUPPLY Qty: 1 0RF Rx Instructions: to check blood sugar 4 times a day (DME) lancets 33 gauge misc See Rx Instructions .MEDSUPPLY Qty: 120 3RF Rx Instructions: To check blood sugar four times a day Glucagon Emergency Kit (human) 1 mg recon soln 1 mg subcut Q20M PRN (Reason: hypoglycemia) Qty: 1 0RF Rx Instructions: until target blood sugar attained (DME) pen needle, diabetic [Comfort Touch Pen Needle] 32 gauge x 5/16" needle See Rx Instructions .Route Qty: 100 0RF Rx Instructions: As directed insulin glargine [Lantus Solostar U-100 Insulin] 100 unit/mL (3 mL) insulin pen 16 unit subcut QPM Activity Restrictions/Additional Instructions: You may alternate over the counter acetaminophen and ibuprofen as needed for pain: - ibuprofen 600mg every 6 hours as needed - acetaminophin 650mg every 4 hours as needed or 1000mg every 6 hours as needed. If you are struggling with constipation, over the counter miralax or senna may be helpful. Continue over the counter iron supplementation: - One option is ferrous sulfate 325 mg once every OTHER day. Taking iron every other day may help reduce side effects and improve absorption. - Take iron in the morning, on an empty stomach, with a full glass of water or orange juice (vitamin C helps your body absorb iron). - Avoid tea, coffee, milk, and calcium supplements for at least one hour after taking iron, as these can block absorption. - If iron upsets your stomach, you may take it with a small amount of food, but this can lower how much iron your body absorbs. - Common side effects include nausea, constipation, diarrhea, and dark stoolsthese are usually not serious. Print Language: Ethiopian Patient Instructions: After a Vaginal , Breast Care After , Incision Care After Vaginal
[2025-10-10] MEDS: VARICELLA VACCINE LIVE/PF 1,350 UNIT/0.5 ML VIAL SUBQ ONE (11:03)
[2025-10-10] MEDS: MEASLES,MUMPS & RUBELLA VACC 0.5 ML VIAL SUBQ ONE (12:07)
[2025-10-10 13:30] VITALS: BP 124/64; TEMP 97.7; O2SAT 98
--- NOTE | 2025-10-10 13:33 | Labor Flowsheet ---
Labor Flowsheet Datetime Report Generated by CPN: 10/10/2025 13:32 Datetime: 10/10/2025 13:10 VITAL SIGNS NBP Sys/Mary/Mean (mmHg): 124 : 64 : 78 Pulse: 80 Datetime: 10/10/2025 10:49 SpO2 (%): 98 Datetime: 10/08/2025 18:45 Stage of : Recovery Temperature (C): 37.1 Temperature Route: Oral Datetime: 10/08/2025 17:39 LaborFlag: Labor Datetime: 10/08/2025 17:16 Patient Care Comments: straight cath for 200cc urine Datetime: 10/08/2025 16:44 STAGE 2 Pushing: Coached on Pushing Pushing Position: Pushing with Contractions Pushing Progress: Descent with Pushing Stage 2 Comments: pushing on right tilt Datetime: 10/08/2025 16:30 UTERINE ACTIVITY Monitor Mode: Internal Frequency (min): 2-3 Resting Tone IUP (mmHg): 10 Contraction Comments: unable to determine intensity or MVU d/t pt involuntary pushing with cxtns FHR Baseline Rate : 130 Variability: Moderate 6-25 bpm Decelerations: Late Comments: unable to determine decel or accel d/t patient position and broken FHT Datetime: 10/08/2025 16:19 MEDICATIONS Pitocin (milliunits): Decreased to @ 3 Datetime: 10/08/2025 16:16 Effacement (%): 80 Exam by: Dr. Lance Vaginal Exam Comments: 7-8cm Datetime: 10/08/2025 16:00 Intensity IUP (mmHg): 45 Meredith Units (mmHg): 95 ASSESSMENT A Monitor Mode: Telemetry Accelerations: None Category: Category I Datetime: 10/08/2025 15:49 Patient Position/Activity: Right Lateral Datetime: 10/08/2025 15:28 Monitor Interventions for FHR: Ultrasound Adjusted Datetime: 10/08/2025 15:00 Pitocin Checklist: At Least 1 Acceleration of 15 bpm x 15 Seconds in 30 Minutes or Adequate Variability; No More than 1 Late Deceleration Occurred in Past 30 Minutes; No More than 2 Variable Decelerations > 60 Seconds in Duration and decreasing >60 bpm in 30 minutes; No More than 5 Uterine Contractions in 10 Minutes for any 20 Minute Interval; Uterus Palpates Soft between Contractions; IUPC Resting Tone less than 25 mmHg Datetime: 10/08/2025 14:45 Duration (sec): 50 Datetime: 10/08/2025 14:28 VAGINAL EXAM Dilatation (cm): 6.0 Station: -2 Membrane Status: Ruptured Membranes Rupture Method: Artificial Amniotic Fluid Color: Clear Amniotic Fluid Amount: Moderate Amniotic Fluid Odor: Normal Datetime: 10/08/2025 13:45 Monitor Interventions for UA: [place] Adjusted Datetime: 10/08/2025 12:49 I/O Interventions: Up to BR Datetime: 10/08/2025 12:45 Quality: Mild Pattern: Normal: <= 5 Contractions in 10 Minutes Resting Tone (Palpate): Relaxed Datetime: 10/08/2025 11:08 Membranes Ruptured Date/Time: 10/08/2025 14:28 Datetime: 10/08/2025 11:04 PAIN Pain Scale: 0 Pain Presence: None/Denies Pain Assessment Comments: pt states she has no pain just some occasional rectal pressure but unsure if it is just gas. Datetime: 10/08/2025 10:00 Medication Comments: Verified with S.Iyer, RN Datetime: 10/08/2025 09:54 Respirations: 17 Pain Type: N/A Datetime: 10/08/2025 09:12 COMMUNICATION Communication Comments: Dr. Lance at bedside discussing POC Datetime: 10/08/2025 09:01 PATIENT CARE IV/Blood Work: IV Started
== END 2025-10-10 13:15 | disposition home or self-care (01) | DRG 806 ==
LOC: WFO 07:56 → FBP 08:01
PROVIDERS: ADMIT Obstetrics & Gynecology; ATTEND Obstetrics & Gynecology
DX: Z23 Encounter for immunization; O70.1 Second degree perineal laceration during delivery; O24.424 Gestational diabetes mellitus in childbirth, insulin controlled; Z3A.39 39 weeks gestation of pregnancy; Z91.138 Patient's unintentional underdosing of medication regimen for other reason; O76 Abnormality in fetal heart rate and rhythm complicating labor and delivery; T38.3X6A Underdosing of insulin and oral hypoglycemic [antidiabetic] drugs, initial encounter; O86.4 Pyrexia of unknown origin following delivery; O72.1 Other immediate postpartum hemorrhage; Z37.0 Single live birth; O99.02 Anemia complicating childbirth